=== PATIENT | male | born 1960 | race African-American/Black ===

== ENCOUNTER 2016-08-19 00:13 | Emergency (ER) | payer SELFPAY ==
[~2016-08-19] VITALS: Ht 165.1 cm; Wt 59.0 kg
[2016-08-19] MEDS ORDERED: MULTIVIT INFUSN,ADULT 4,VIT K 10 ML, FOLIC ACID 1 MG, THIAMINE 100 MG in IV NORMAL SALI... IV ONE (01:00)
[2016-08-19] MEDS ORDERED: ONDANSETRON PF 4 MG/2 ML VIAL. IV ONE (01:00)
[2016-08-19 01:08] LABS: BASO % 0 % (0-3); EOS % 2 % (0-3); HEMATOCRIT 36.6 % (39.0-53.0); HEMOGLOBIN 12.3 g/dL (13.0-17.5); LYMPH # 2.2 x10^3/uL (1.0-4.8); LYMPH % 62 % (24-48); MEAN CORPUSCULAR HEMOGLOBIN 32 pg (25-35); MEAN CORPUSCULAR HGB CONC 34 g/dL (31-37); MEAN CORPUSCULAR VOLUME 96 fL (79-100); MONO % 11 % (0-9); NEUT % 24 % (31-73); PLATELET COUNT 162 x10^3/uL (140-400); RED BLOOD COUNT 3.82 x10^6/uL (4.30-5.70); RED CELL DISTRIBUTION WIDTH 14.8 % (11.5-14.5); WHITE BLOOD COUNT 3.6 x10^3/uL (4.0-11.0)
[2016-08-19 01:27] LABS: CALCIUM 8.9 mg/dL (8.5-10.1); CREATININE 0.7 mg/dL (0.7-1.3); GFR 141.7; POTASSIUM 3.7 mmol/L (3.5-5.1)
[2016-08-19 01:31] LABS: ALBUMIN/GLOBULIN RATIO 0.9 (1.0-1.7); TOTAL BILIRUBIN 0.4 mg/dL (0.2-1.0); TOTAL PROTEIN 8.6 g/dL (6.4-8.2)
[2016-08-19 02:45] VITALS: BP 104/67
[2016-08-19] MEDS ORDERED: FAMOTIDINE 20 MG/2 ML VIAL IVP ONE (02:45)
[2016-08-19] MEDS ORDERED: FAMO-63 PO (03:05)
[2016-08-19] MEDS ORDERED: ONDA4TAB7 PO (03:05)
--- NOTE | 2016-08-19 03:05 | PHYS DOC ---
Past Medical History Past Medical History: Bipolar Additional Past Medical Histor: PTSD Past Surgical History: No Surgical History, Other Additional Past Surgical Histo: LT ARM Alcohol Use: Heavy Additional Information: 6 PACK IN THE LAST FEW HOURS Drug Use: None Adult General Chief Complaint Chief Complaint: HEMATEMESIS/VOMITING BLOOD HPI HPI This is a 55-year-old male who presents with multiple episodes of vomiting with some streaks of blood noted as well as well as some mild chest discomfort. Patient states he drank multiple cans of beer today. His fiancee at bedside states he had at least 6 beers prior to arrival. She is speaking in complete sentences and in no acute distress. She is currently alert and oriented and can answer basic questions and is not significantly altered. He denies any recent illnesses. He denies any fever. He does admit to having a fall several days ago does have some mild left-sided pain but denies any other specific complaints. Denies any head trauma with the fall. He denies any loss consciousness. Review of Systems Review of Systems Constitutional: Denies fever or chills [] Eyes: Denies change in visual acuity, redness, or eye pain [] HENT: Denies nasal congestion or sore throat [] Respiratory: Denies cough or shortness of breath [] Cardiovascular: No additional information not addressed in HPI [] GI: Denies abdominal pain, has nausea, has vomiting, denies bloody stools or diarrhea [] : Denies dysuria or hematuria [] Musculoskeletal: Denies back pain or joint pain [] Integument: Denies rash or skin lesions [] Neurologic: Denies headache, focal weakness or sensory changes [] Endocrine: Denies polyuria or polydipsia [] Current Medications Current Medications Current Medications Medications (Trade) Dose Ordered Sig/[facility] Start Time Stop Time Status Last Admin Dose Admin Famotidine (Pepcid) 20 mg 1X ONCE 08/19/16 02:45 08/19/16 02:46 DC 08/19/16 02:54 20 MG Multivitamins/ Folic Acid/ Thiamine HCl/ Sodium Chloride (Infuvite Adult/ Iv Sodium Chloride 0.9% 1000ml Bag) 1,011.2 ml @ 1,000 mls/ hr 1X ONCE 08/19/16 01:00 08/19/16 02:00 DC 08/19/16 01:24 1,000 MLS/HR Ondansetron HCl (Zofran) 4 mg 1X ONCE 08/19/16 01:00 08/19/16 01:01 DC 08/19/16 01:24 4 MG Allergies Allergies Allergies Uncoded Allergies Type Severity Reaction Last Updated Verified OTHER Allergy Intermediate "SOME ALLERGY MEDICINE THAT'S IN A PURPLE BOX" 05/14 Physical Exam Physical Exam Constitutional: Well developed, well nourished, no acute distress, non-toxic appearance. [] HENT: Normocephalic, atraumatic, bilateral external ears normal, oropharynx moist, no oral exudates, nose normal. [] Eyes: PERRLA, EOMI, conjunctiva normal, no discharge. [] Neck: Normal range of motion, no tenderness, supple, no stridor. [] Cardiovascular:Heart rate regular rhythm, no murmur [] Lungs & Thorax: Bilateral breath sounds clear to auscultation [] Abdomen: Bowel sounds normal, soft, no tenderness, no masses, no pulsatile masses. [] Skin: Warm, dry, no erythema, no rash. [] Back: No tenderness, no CVA tenderness. [] Extremities: No tenderness, no cyanosis, no clubbing, ROM intact, no edema. [] Neurologic: Alert and oriented X 3, normal motor function, normal sensory function, no focal deficits noted. [] Psychologic: Affect normal, judgement normal, mood normal. [] Current Patient Data Vital Signs Vital Signs Date Time Temp Pulse Resp B/P Pulse Ox O2 Delivery O2 Flow Rate FiO2 08/19/16 00:30 97.0 75 16 138/96 97 Room Air 97.0 Lab Values Laboratory Tests Test 08/19/16 00:55 White Blood Count 3.6x10^3/uL (4.0-11.0) L Red Blood Count 3.82x10^6/uL (4.30-5.70) L Hemoglobin 12.3g/dL (13.0-17.5) L Hematocrit 36.6% (39.0-53.0) L Mean Corpuscular Volume 96fL (79-100) Mean Corpuscular Hemoglobin 32pg (25-35) Mean Corpuscular Hemoglobin Concent 34g/dL (31-37) Red Cell Distribution Width 14.8% (11.5-14.5) H Platelet Count 162x10^3/uL (140-400) Neutrophils (%) (Auto) 24% (31-73) L Lymphocytes (%) (Auto) 62% (24-48) H Monocytes (%) (Auto) 11% (0-9) H Eosinophils (%) (Auto) 2% (0-3) Basophils (%) (Auto) 0% (0-3) Neutrophils # (Auto) 0.9x10^3uL (1.8-7.7) L Lymphocytes # (Auto) 2.2x10^3/uL (1.0-4.8) Monocytes # (Auto) 0.4x10^3/uL (0.0-1.1) Eosinophils # (Auto) 0.1x10^3/uL (0.0-0.7) Basophils # (Auto) 0.0x10^3/uL (0.0-0.2) Platelet Estimate Pending Sodium Level 141mmol/L (136-145) Potassium Level 3.7mmol/L (3.5-5.1) Chloride Level 100mmol/L (98-107) Carbon Dioxide Level 26mmol/L (21-32) Anion Gap 15 (6-14) H Blood Urea Nitrogen 5mg/dL (8-26) L Creatinine 0.7mg/dL (0.7-1.3) Estimated GFR (Cockcroft-Gault) 141.7 BUN/Creatinine Ratio 7 (6-20) Glucose Level 87mg/dL (70-99) Calcium Level 8.9mg/dL (8.5-10.1) Total Bilirubin 0.4mg/dL (0.2-1.0) Aspartate Amino Transferase (AST) 145U/L (15-37) H Alanine Aminotransferase (ALT) 99U/L (16-63) H Alkaline Phosphatase 132U/L (46-116) H Troponin I Quantitative < 0.017ng/mL (0.000-0.055) Total Protein 8.6g/dL (6.4-8.2) H Albumin 4.0g/dL (3.4-5.0) Albumin/Globulin Ratio 0.9 (1.0-1.7) L Lipase 192U/L (73-393) Ethyl Alcohol Level 387mg/dL (0-10) H Laboratory Tests 08/19/16 00:55 Laboratory Tests 08/19/16 00:55 EKG EKG EKG as interpreted by me shows a sinus rhythm with an approximate rate 76 bpm. There are no obvious ischemic findings. Intervals are normal. EKG does not meet STEMI criteria. Radiology/Procedures Radiology/Procedures One view of the chest as interpreted by me did not reveal an acute cardiopulmonary process. Course & Med Decision Making Course & Med Decision Making Pertinent Labs and Imaging studies reviewed. (See chart for details) This is a 55-year-old male who is acutely intoxicated on alcohol who has a serum ethanol 0.387. Patient was given a banana bag, Zofran, Pepcid and was observed in the department for at least 3 hours and had no incidence. Vital signs were unremarkable. His laboratory workup is consistent with alcohol intoxication with a classically elevated AST and ALTs in the 2-1 ratio. His cardiac enzymes are negative. His EKG did not reveal any obvious ischemic findings. He was given a meal and successfully orally challenged. He did not vomit while in the department. Upon my final reassessment, patient feels much improved and will be safe to be discharged into the care of his fiance with strict instructions to avoid excess alcohol use. I provided him a prescription for Pepcid and Zofran. He'll follow closely with his primary care doctor in the next several days. Romaineon Disclaimer Malcolm Disclaimer This electronic medical record was generated, in whole or in part, using a voice recognition dictation system. Departure Departure Impression: Primary Impression: Alcohol intoxication Additional Impression: Nausea & vomiting Disposition: 01 HOME, SELF-CARE Admitting Physician: Other Condition: STABLE Referrals: UNKNOWN PCP NAME (PCP) Patient Instructions: Alcohol Intoxication, [id number] Additional Instructions: Please take your medications as prescribed and continue to drink plenty of fluids. Avoid drinking excess alcohol. Return to the ER if you develop any worsening of your symptoms. Follow up closely with your primary doctor for your abdominal pain and alcohol use. Scripts Famotidine (Pepcid)20 Mg [id number] Mg PO HS #10 TAB Prov:JAYLON VAUGHN DO 08/19/16 Ondansetron Hcl (Zofran)4 Mg Tablet4 Mg PO BID PRN NAUSEA/VOMITING #10 TAB Prov:JAYLON VAUGHN DO 08/19/16 Problem Qualifiers JAYLON VAUGHN DO Aug 19, 2016 03:05
[2016-08-19 05:32] LABS: % BASOS 2 % (0-3); % EOS 1 % (0-5)
[2016-08-19 05:33] LABS: PLT ESTIMATE ADEQUATE (ADEQUATE); TARGET CELLS FEW
--- NOTE | 2016-08-19 06:41 | EKG ---
[facility] [address] [place] [address] Test Date: 2016-08-19 Test Time: 00:32:23 Pat Name: IGNACIA GAONA Department: Room: Gender: M Reservations Clerk: : 1960 Requested By: JAYLON VAUGHN Order Number: [id number] Reading MD: Beth Bass Measurements Intervals [place] Rate: 76 P: 46 [place]: 194 QRS: 3 QRSD: 100 T: 52 QT: 366 QTc: 416 Interpretive Statements SINUS RHYTHM NORMAL EKG Electronically Signed On 08-21-2016 17:14:45 CDT by Beth Bass
--- NOTE | 2016-08-19 07:30 | RAD ---
Indication chest pain. A single view of the chest was obtained and is compared to an exam 01/24/2014. The heart and pulmonary vessels appear normal. The mediastinum has a normal appearance. The lungs are clear. There is no pleural fluid or pneumothorax. The visualized bony structures appear grossly intact. A significant change compared to the previous exam is not seen. IMPRESSION: No acute or focal process. No significant change
== END 2016-08-19 03:17 | disposition home or self-care (01) ==
LOC: ER 00:13
DX: F10.129 Alcohol abuse with intoxication, unspecified (principal); R11.2 Nausea with vomiting, unspecified; R07.89 Other chest pain; R74.8 Abnormal levels of other serum enzymes; F43.10 Post-traumatic stress disorder, unspecified; F31.9 Bipolar disorder, unspecified
CPT/HCPCS: 36415; 71010; 80053; 80320; 83690; 84484; 85007; 85027; 93005; 96365; 96375; 99285; J2405; J7030; S0028; G0480

== ENCOUNTER 2016-10-16 19:58 | Emergency (ER) | payer SELFPAY ==
[~2016-10-16] VITALS: Ht 162.6 cm; Wt 61.2 kg
[~2016-10-16 19:58] MED LIST: FAMO-63 PO; ONDA4TAB7 PO
[2016-10-16 20:19] VITALS: BP 152/101
[2016-10-16 20:32] LABS: BASO % 1 % (0-3); EOS % 3 % (0-3); HEMOGLOBIN 13.7 g/dL (13.0-17.5); LYMPH # 1.9 x10^3/uL (1.0-4.8); LYMPH % 45 % (24-48); MEAN CORPUSCULAR HEMOGLOBIN 33 pg (25-35); MEAN CORPUSCULAR HGB CONC 34 g/dL (31-37); MEAN CORPUSCULAR VOLUME 96 fL (79-100); MONO % 10 % (0-9); NEUT % 42 % (31-73); PLATELET COUNT 151 x10^3/uL (140-400); RED BLOOD COUNT 4.17 x10^6/uL (4.30-5.70); RED CELL DISTRIBUTION WIDTH 14.6 % (11.5-14.5); WHITE BLOOD COUNT 4.1 x10^3/uL (4.0-11.0)
--- NOTE | 2016-10-16 20:40 | PHYS DOC ---
Past Medical History Past Medical History: Bipolar, Depression, Hypertension Additional Past Medical Histor: PTSD Past Surgical History: No Surgical History, Other Additional Past Surgical Histo: LT ARM Alcohol Use: Heavy Drug Use: None Adult General Chief Complaint Chief Complaint: ABDOMINAL PAIN HPI HPI Patient is a 55 year old male brought to the ED by his with the complaint of left upper quadrant abdominal pain since yesterday. He's had some vomiting for about 3 days, the last time was this morning. He's had some diarrhea off and on. This morning he had complained of left-sided chest pain and "migraine". Patient drinks daily and today he drank 2 "tall" beers. He did vomit after drinking. Last time he was seen for similar problems he was told he had early liver and kidney disease. The patient is full 100% disability through the [employer] for [place]. He also has depression and hypertension. He sees a doctor at [facility]. He does not take his medications regularly. Review of Systems Review of Systems Constitutional: Denies fever or chills [] Eyes: Denies change in visual acuity, redness, or eye pain [] HENT: Denies nasal congestion or sore throat [] Respiratory: Denies cough or shortness of breath [] Cardiovascular: As in history of present illness GI: As in history of present illness : Denies dysuria or hematuria [] Musculoskeletal: Denies back pain or joint pain [] Integument: Denies rash or skin lesions [] Neurologic: Patient complains of a headache that he characterizes as a "migraine " Current Medications Current Medications Current Medications Medications (Trade) Dose Ordered Sig/[place] Start Time Stop Time Status Last Admin Dose Admin Famotidine (Pepcid) 20 mg 1X ONCE 10/16/16 20:45 10/16/16 20:46 DC 10/16/16 21:00 20 MG Fentanyl Citrate (Fentanyl 2ml Vial) 50 mcg 1X ONCE 10/16/16 21:00 10/16/16 21:01 DC 10/16/16 21:00 50 MCG Ketorolac Tromethamine (Toradol) 30 mg 1X ONCE 10/16/16 20:45 10/16/16 20:45 DC Multivitamins 10 ml/Folic Acid 1 mg/Thiamine HCl 100 mg/Dextrose/ Lactated Ringer's 1,011.2 ml @ 1,000 mls/ hr 1X ONCE 10/16/16 21:00 10/16/16 22:00 10/16/16 21:01 1,000 MLS/HR Ondansetron HCl (Zofran) 4 mg 1X ONCE 10/16/16 20:45 10/16/16 20:46 DC 10/16/16 21:00 4 MG Allergies Allergies Allergies Coded Allergies Type Severity Reaction Last Updated Verified Antihistamines - Alkylamine Allergy Intermediate 10/16/16 Yes Antihistamines - Ethanolamine Allergy Intermediate 10/16/16 Yes Antihistamines - Ethylenediamine Allergy Intermediate 10/16/16 Yes Antihistamines - Piperazine Allergy Intermediate 10/16/16 Yes Antihistamines - Piperidine Allergy Intermediate 10/16/16 Yes ibuprofen Allergy Intermediate 10/16/16 Yes Physical Exam Physical Exam Constitutional: Well developed, well nourished, no acute distress, non-toxic appearance. Alert, mentating normally, no acute distress. HENT: Normocephalic, atraumatic, bilateral external ears normal, nose normal. [] Eyes: conjunctiva normal, no discharge. [] Neck: Normal range of motion, no stridor. [] Cardiovascular:Heart rate regular rhythm, no murmur [] Lungs & Thorax: Bilateral breath sounds clear to auscultation [] Abdomen: Bowel sounds normal, no bruit, soft, nondistended, no mass, no pulsatile mass. Mild to moderate tenderness to palpation mostly in the left upper quadrant, no rebound or guarding. Skin: Warm, dry, no erythema, no rash. [] Extremities: No tenderness, no cyanosis, no clubbing, ROM intact, no edema. [] Neurologic: Alert and oriented X 3, normal motor function, normal sensory function, no focal deficits noted. [] Current Patient Data Vital Signs Vital Signs Date Time Temp Pulse Resp B/P (MAP) Pulse Ox O2 Delivery O2 Flow Rate FiO2 10/16/16 21:00 16 10/16/16 20:19 97.6 87 152/101 (118) 100 Room Air 97.6 Lab Values Laboratory Tests Test 10/16/16 20:15 10/16/16 20:53 White Blood Count 4.1 x10^3/uL (4.0-11.0) Red Blood Count 4.17 x10^6/uL (4.30-5.70) L Hemoglobin 13.7 g/dL (13.0-17.5) Hematocrit 40.0 % (39.0-53.0) Mean Corpuscular Volume 96 fL (79-100) Mean Corpuscular Hemoglobin 33 pg (25-35) Mean Corpuscular Hemoglobin Concent 34 g/dL (31-37) Red Cell Distribution Width 14.6 % (11.5-14.5) H Platelet Count 151 x10^3/uL (140-400) Neutrophils (%) (Auto) 42 % (31-73) Lymphocytes (%) (Auto) 45 % (24-48) Monocytes (%) (Auto) 10 % (0-9) H Eosinophils (%) (Auto) 3 % (0-3) Basophils (%) (Auto) 1 % (0-3) Neutrophils # (Auto) 1.7 x10^3uL (1.8-7.7) L Lymphocytes # (Auto) 1.9 x10^3/uL (1.0-4.8) Monocytes # (Auto) 0.4 x10^3/uL (0.0-1.1) Eosinophils # (Auto) 0.1 x10^3/uL (0.0-0.7) Basophils # (Auto) 0.0 x10^3/uL (0.0-0.2) Prothrombin Time 12.3 SEC (11.7-14.0) Prothrombin Time INR 1.0 (0.8-1.1) PTT 26 SEC (24-38) Sodium Level 139 mmol/L (136-145) Potassium Level 4.0 mmol/L (3.5-5.1) Chloride Level 98 mmol/L (98-107) Carbon Dioxide Level 26 mmol/L (21-32) Anion Gap 15 (6-14) H Blood Urea Nitrogen 6 mg/dL (8-26) L Creatinine 0.7 mg/dL (0.7-1.3) Estimated GFR (Cockcroft-Gault) 141.7 BUN/Creatinine Ratio 9 (6-20) Glucose Level 80 mg/dL (70-99) Calcium Level 9.5 mg/dL (8.5-10.1) Total Bilirubin 0.6 mg/dL (0.2-1.0) Aspartate Amino Transferase (AST) 234 U/L (15-37) H Alanine Aminotransferase (ALT) 123 U/L (16-63) H Alkaline Phosphatase 138 U/L (46-116) H Troponin I Quantitative < 0.017 ng/mL (0.000-0.055) Total Protein 8.9 g/dL (6.4-8.2) H Albumin 4.6 g/dL (3.4-5.0) Albumin/Globulin Ratio 1.1 (1.0-1.7) Lipase 352 U/L (73-393) Urine Collection Type Unknown Urine Color Yellow Urine Clarity Clear Urine pH 5.5 Urine Specific [place] <=1.005 Urine Protein Negative mg/dL (NEG-TRACE) Urine Glucose (UA) Negative mg/dL (NEG) Urine Ketones (Stick) Trace mg/dL (NEG) Urine Blood Negative (NEG) Urine Nitrite Negative (NEG) Urine Bilirubin Negative (NEG) Urine Urobilinogen Dipstick 1.0 mg/dL (0.2 mg/dL) Urine Leukocyte Esterase Negative (NEG) Urine RBC Rare /HPF (0-2) Urine WBC Rare /HPF (0-4) Urine Squamous Epithelial Cells Occ /LPF Urine Bacteria 0 /HPF (0-FEW) Laboratory Tests 10/16/16 20:15 Laboratory Tests 10/16/16 20:15 EKG EKG 12-lead EKG read by me. Sinus rhythm. Heart rate 85. There are no acute ST or T wave changes indicative of ischemia or infarction. No STEMI. 2008 [] Radiology/Procedures Radiology/Procedures [] Course & Med Decision Making Course & Med Decision Making Pertinent Labs and Imaging studies reviewed. (See chart for details) 55-year-old man who is a daily drinker presents to the ED with left upper quadrant pain, vomiting, also some pain up into his left chest and a headache. I discussed with the patient and his that we will give him some IV fluids, some IV pain and nausea medicine, check some labs. They're agreeable to that plan. Lipase normal. Transaminases consistent with alcohol abuse. Other labs unremarkable. I believe the patient likely has alcoholic gastritis. I'm not finding any other concern for other serious medical causes of his condition. Discussed with the patient and his . See instructions for plan. [] Dragon Disclaimer Dragon Disclaimer This electronic medical record was generated, in whole or in part, using a voice recognition dictation system. Departure Departure Impression: Primary Impression: Left upper quadrant abdominal pain of unknown etiology Additional Impressions: Alcoholic gastritis Alcohol abuse Disposition: 01 HOME, SELF-CARE Condition: STABLE Referrals: UNKNOWN PCP NAME (PCP) Patient Instructions: Alcohol Problems, Gastritis, Adult, [id number] Additional Instructions: As we discussed, labs today did not show a serious cause of your pain. I think it might be an inflamed stomach from drinking alcohol. If possible, avoid drinking alcohol for the next several days. Drink liquids and stick with bland foods in small amounts. Purchase [id number] Zantac, ranitidine, and take as directed. This medicine decreases your stomach acid. Problem Qualifiers SARAH DENG MD Oct 16, 2016 20:40
[2016-10-16 20:41] LABS: PROTHROMBIN TIME PATIENT 12.3 SEC (11.7-14.0)
[2016-10-16] MEDS ORDERED: ONDANSETRON PF 4 MG/2 ML VIAL. IV ONE (20:45)
[2016-10-16] MEDS ORDERED: FAMOTIDINE 20 MG/2 ML VIAL IVP ONE (20:45)
[2016-10-16] MEDS ORDERED: KETOROLAC TROMETHAMINE 30 MG/ML INJ. IV ONE (20:45)
[2016-10-16 20:48] LABS: CALCIUM 9.5 mg/dL (8.5-10.1); CREATININE 0.7 mg/dL (0.7-1.3); GFR 141.7
[2016-10-16 20:55] LABS: ALBUMIN 4.6 g/dL (3.4-5.0); ALBUMIN/GLOBULIN RATIO 1.1 (1.0-1.7); TOTAL BILIRUBIN 0.6 mg/dL (0.2-1.0); TOTAL PROTEIN 8.9 g/dL (6.4-8.2)
[2016-10-16] MEDS ORDERED: fentaNYL PF VIAL 100 MCG/2 ML VIAL IV ONE (21:00)
[2016-10-16] MEDS ORDERED: MULTIVIT INFUSN,ADULT 4,VIT K 10 ML, FOLIC ACID 1 MG, THIAMINE 100 MG in IV DEXTROSE 5%... IV ONE (21:00)
[2016-10-16 21:01] LABS: BILIRUBIN,URINE NEGATIVE (NEG); GLUCOSE,URINE NEGATIVE (NEG); NITRITE,URINE NEGATIVE (NEG); PH,URINE 5.5; PROTEIN,URINE NEGATIVE (NEG-TRACE)
[2016-10-16 21:06] LABS: BACTERIA,URINE 0 /HPF (0-FEW); RBC,URINE RARE /HPF (0-2); SQUAMOUS EPITHELIAL CELL,UR OCC /LPF; WBC,URINE RARE /HPF (0-4)
--- NOTE | 2016-10-17 06:10 | EKG ---
[facility] [address] [place] [address] Test Date: 2016-10-16 Test Time: 20:08:19 Pat Name: IGNACIA GAONA Department: Room: Gender: M Police Records Clerk: : 1960 Requested By: SARAH DENG Order Number: [id number] Reading MD: Denton Rosa Measurements Intervals [place] Rate: 85 P: 26 [place]: 178 QRS: -7 QRSD: 92 T: 23 QT: 360 QTc: 429 Interpretive Statements SINUS RHYTHM LEFTWARD AXIS QRS(T) CONTOUR ABNORMALITY CONSISTENT WITH ANTEROSEPTAL INFARCT AGE UNDETERMINED RI6.01 Unconfirmed report Compared to ECG 08/19/2016 00:32:23 Left-axis deviation now present Myocardial infarct finding now present Electronically Signed On 10-17-2016 11:07:45 CDT by Denton Rosa
== END 2016-10-16 22:05 | disposition home or self-care (01) ==
LOC: ER 19:58
DX: R10.12 Left upper quadrant pain (principal); K29.20 Alcoholic gastritis without bleeding; F10.10 Alcohol abuse, uncomplicated; G43.909 Migraine, unspecified, not intractable, without status migrainosus; I10 Essential (primary) hypertension; F43.10 Post-traumatic stress disorder, unspecified; F31.9 Bipolar disorder, unspecified; Z88.8 Allergy status to other drugs, medicaments and biological substances; Z88.6 Allergy status to analgesic agent
CPT/HCPCS: 36415; 80053; 81001; 83690; 84484; 85027; 85610; 85730; 93005; 96365; 96375; 99285; J2405; J3010; S0028

== ENCOUNTER 2017-05-31 12:17 | Inpatient (IN) | payer OTHER ==
[2017-05-31 12:29] LABS: POC GLUCOSE 99 mg/dL (70-99)
[2017-05-31] MEDS: IV NORMAL SALINE 1000ML BAG 1,000 ML IV ×3 (12:30→21:11)
[2017-05-31 12:31] LABS: ADD MAN DIFF? NO
[2017-05-31 12:43] LABS: BILIRUBIN,URINE NEGATIVE (NEG); CLARITY,URINE CLEAR; COLOR,URINE YELLOW; GLUCOSE,URINE NEGATIVE (NEG); NITRITE,URINE NEGATIVE (NEG); PH,URINE 5.5; PROTEIN,URINE NEGATIVE (NEG-TRACE)
[2017-05-31 12:46] LABS: BASO # 0.1 x10^3/uL (0.0-0.2); BASO % 1 % (0-3); EOS # 0.3 x10^3/uL (0.0-0.7); EOS % 3 % (0-3); HEMATOCRIT 37.6 % (39.0-53.0); HEMOGLOBIN 12.7 g/dL (13.0-17.5); LYMPH # 3.1 x10^3/uL (1.0-4.8); LYMPH % 32 % (24-48); MEAN CORPUSCULAR HEMOGLOBIN 31 pg (25-35); MEAN CORPUSCULAR HGB CONC 34 g/dL (31-37); MEAN CORPUSCULAR VOLUME 92 fL (79-100); MONO # 0.6 x10^3/uL (0.0-1.1); MONO % 7 % (0-9); NEUT # 5.7 x10^3uL (1.8-7.7); NEUT % 58 % (31-73); PLATELET COUNT 197 x10^3/uL (140-400); RED BLOOD COUNT 4.07 x10^6/uL (4.30-5.70); RED CELL DISTRIBUTION WIDTH 16.3 % (11.5-14.5); WHITE BLOOD COUNT 9.7 x10^3/uL (4.0-11.0)
[2017-05-31 12:47] LABS: BARBITURATES NEG (NEG); BENZODIAZEPINES POS (NEG); CANNABINOIDS NEG (NEG); COCAINE NEG (NEG); METHADONE NEG (NEG); OPIATES NEG (NEG); PHENCYCLIDINE NEG (NEG)
[2017-05-31 12:48] LABS: AMPHETAMINE/METHAMPHETAMINE NEG (NEG); ETHANOL, URINE POS (NEG)
[2017-05-31 12:54] LABS: ANION GAP 16 (6-14); BLOOD UREA NITROGEN 11 mg/dL (8-26); BUN/CREATININE RATIO 14 (6-20); CARBON DIOXIDE 25 mmol/L (21-32); CHLORIDE 100 mmol/L (98-107); CREATININE 0.8 mg/dL (0.7-1.3); GLUCOSE 97 mg/dL (70-99); POTASSIUM 3.7 mmol/L (3.5-5.1); SODIUM 141 mmol/L (136-145)
[2017-05-31 12:55] LABS: ETHANOL 181 mg/dL (0-10)
[2017-05-31 12:58] LABS: AMORPHOUS SEDIMENT,UR PRESENT /HPF; BACTERIA,URINE 0 /HPF (0-FEW); HYALINE CASTS, URINE MODERATE /HPF; RBC,URINE 0 /HPF (0-2); WBC,URINE 0 /HPF (0-4)
[2017-05-31 13:01] LABS: ALBUMIN/GLOBULIN RATIO 0.9 (1.0-1.7); ALK PHOS 155 U/L (46-116); ALT (SGPT) 17 U/L (16-63); AST (SGOT) 18 U/L (15-37); LIPASE 66 U/L (73-393); TOTAL BILIRUBIN 0.5 mg/dL (0.2-1.0); TOTAL PROTEIN 8.7 g/dL (6.4-8.2)
[2017-05-31 13:03] LABS: TROPONINI < 0.017 ng/mL (0.000-0.055)
[2017-05-31 13:05] LABS: LACTIC ACID 3.2 mmol/L (0.4-2.0)
[2017-05-31] MEDS: IOHEXOL 300 MG/ML 100ML VIAL. IV (13:16)
[2017-05-31] MEDS: ROCURONIUM 50 MG/5 ML VIAL. IV (13:52)
[2017-05-31] MEDS: ETOMIDATE 20 MG/10 ML VIAL. IV (13:52)
[2017-05-31] MEDS ORDERED: ONDANSETRON PF 4 MG/2 ML VIAL. IV ×2 (14:00→14:45)
[2017-05-31] MEDS: PROPOFOL 10 MG/ML (20ML) VIAL. IV (14:15)
[2017-05-31] MEDS ORDERED: PROPOFOL 50 ML IV (14:15)
[2017-05-31] MEDS: levETIRAcetam 1,000 MG in IV DEXTROSE 5% 100 ML IV ×2 (14:31→21:11)
[2017-05-31] MEDS: PROPOFOL 50 ML IV (14:33)
[2017-05-31 14:57] LABS: BASE EXCESS ABG -1 mmol/L (-3-3); HCO3 ABG 20 mmol/L (21-28); PCO2 ABG 23 mmHg (35-46); PO2 ABG 126 mmHg (75-108); SAT O2 ABG 98 % (92-99)
[2017-05-31 15:32] LABS: PH ABG 7.56 (7.35-7.45)
[2017-05-31] MEDS: fentaNYL PF VIAL 100 MCG/2 ML VIAL IV (16:25)
[2017-05-31 16:34] LABS: LACTIC ACID 3.3 mmol/L (0.4-2.0)
[2017-05-31] MEDS ORDERED: PROPOFOL 0 ML IV (17:50)
[2017-05-31] MEDS: THIAMINE 100 MG in IV DEXTROSE 5% 50 ML IV (19:38)
[2017-05-31] MEDS ORDERED: PROPOFOL 100 ML IV ×2 (22:23→22:43)
[2017-06-01] MEDS: PROPOFOL 100 ML IV ×2 (01:59→06:12)
[2017-06-01] MEDS: FAMOTIDINE 20 MG/2 ML VIAL IVP ×2 (04:59→21:10)
[2017-06-01] MEDS: levETIRAcetam 1,000 MG in IV DEXTROSE 5% 100 ML IV ×3 (05:00→21:09)
[2017-06-01] MEDS: IV NORMAL SALINE 1000ML BAG 1,000 ML IV ×2 (05:02→09:59)
[2017-06-01 05:10] LABS: ADD MAN DIFF? NO
[2017-06-01 05:17] LABS: BASO % 1 % (0-3); EOS # 0.4 x10^3/uL (0.0-0.7); EOS % 4 % (0-3); HEMATOCRIT 33.2 % (39.0-53.0); HEMOGLOBIN 11.3 g/dL (13.0-17.5); LYMPH # 1.6 x10^3/uL (1.0-4.8); LYMPH % 18 % (24-48); MEAN CORPUSCULAR HEMOGLOBIN 32 pg (25-35); MEAN CORPUSCULAR HGB CONC 34 g/dL (31-37); MEAN CORPUSCULAR VOLUME 92 fL (79-100); MONO # 0.7 x10^3/uL (0.0-1.1); MONO % 8 % (0-9); NEUT # 5.9 x10^3uL (1.8-7.7); NEUT % 69 % (31-73); PLATELET COUNT 170 x10^3/uL (140-400); RED BLOOD COUNT 3.59 x10^6/uL (4.30-5.70); RED CELL DISTRIBUTION WIDTH 16.5 % (11.5-14.5); WHITE BLOOD COUNT 8.6 x10^3/uL (4.0-11.0)
[2017-06-01 05:28] LABS: ANION GAP 12 (6-14); BLOOD UREA NITROGEN 9 mg/dL (8-26); CALCIUM 7.9 mg/dL (8.5-10.1); CARBON DIOXIDE 24 mmol/L (21-32); CHLORIDE 106 mmol/L (98-107); CREATININE 0.7 mg/dL (0.7-1.3); GFR 141.2; GLUCOSE 73 mg/dL (70-99); POTASSIUM 3.3 mmol/L (3.5-5.1); SODIUM 142 mmol/L (136-145)
[2017-06-01 07:45] LABS: BASE EXCESS ABG 0 mmol/L (-3-3); HCO3 ABG 24 mmol/L (21-28); PCO2 ABG 39 mmHg (35-46); PH ABG 7.41 (7.35-7.45); PO2 ABG 126 mmHg (75-108); SAT O2 ABG 98 % (92-99)
[2017-06-01 07:50] LABS: FIO2 ABG 35
[2017-06-01] MEDS ORDERED: HALOPERIDOL LACTATE 5 MG/ML VIAL. IVP (08:30)
[2017-06-01 08:41] LABS: PHOSPHORUS 2.4 mg/dL (2.6-4.7)
[2017-06-01 08:41] LABS: MAGNESIUM 1.6 mg/dL (1.8-2.4)
[2017-06-01] MEDS: MULTIVIT INFUSN,ADULT 4,VIT K 10 ML, THIAMINE 100 MG, FOLIC ACID 1 MG in IV NORMAL SALI... IV (10:55)
[2017-06-01] MEDS: ENOXAPARIN 40 MG/0.4 ML SYRINGE. SQ (11:36)
[2017-06-01 12:22] LABS: MRSA BY PCR Negative (Negative)
[2017-06-01] MEDS: POTASSIUM PHOSPHATE DIBASIC 10 MMOL in IV DEXTROSE 5% 100 ML IV ×2 (17:47→18:00)
[2017-06-01] MEDS: MAGNESIUM SULFATE 4GM 100 ML IV (17:47)
[2017-06-01] MEDS: ACETAMINOPHEN 650 MG/20.3 ML SOLUTION. PEG (18:09)
[2017-06-01] MEDS: POTASSIUM CL 20MEQ D5-0.9%NACL 1,000 ML IV (18:14)
[2017-06-02] MEDS: MONTELUKAST SODIUM 10 MG TABLET. PO (02:44)
[2017-06-02 04:25] LABS: ADD MAN DIFF? NO
[2017-06-02 04:32] LABS: BASO # 0.1 x10^3/uL (0.0-0.2); BASO % 1 % (0-3); EOS # 0.4 x10^3/uL (0.0-0.7); EOS % 6 % (0-3); HEMATOCRIT 31.3 % (39.0-53.0); HEMOGLOBIN 10.7 g/dL (13.0-17.5); LYMPH # 1.5 x10^3/uL (1.0-4.8); LYMPH % 22 % (24-48); MEAN CORPUSCULAR HEMOGLOBIN 32 pg (25-35); MEAN CORPUSCULAR HGB CONC 34 g/dL (31-37); MEAN CORPUSCULAR VOLUME 93 fL (79-100); MONO # 0.7 x10^3/uL (0.0-1.1); MONO % 10 % (0-9); NEUT # 4.2 x10^3uL (1.8-7.7); NEUT % 61 % (31-73); PLATELET COUNT 182 x10^3/uL (140-400); RED BLOOD COUNT 3.37 x10^6/uL (4.30-5.70); RED CELL DISTRIBUTION WIDTH 15.8 % (11.5-14.5); WHITE BLOOD COUNT 6.8 x10^3/uL (4.0-11.0)
[2017-06-02 04:53] LABS: ANION GAP 8 (6-14); BLOOD UREA NITROGEN 8 mg/dL (8-26); CALCIUM 8.1 mg/dL (8.5-10.1); CARBON DIOXIDE 25 mmol/L (21-32); CHLORIDE 107 mmol/L (98-107); CREATININE 0.8 mg/dL (0.7-1.3); GLUCOSE 112 mg/dL (70-99); MAGNESIUM 2.3 mg/dL (1.8-2.4); POTASSIUM 3.7 mmol/L (3.5-5.1); SODIUM 140 mmol/L (136-145)
[2017-06-02] MEDS: POTASSIUM CL 20MEQ D5-0.9%NACL 1,000 ML IV (05:50)
[2017-06-02] MEDS: MULTIVIT INFUSN,ADULT 4,VIT K 10 ML, THIAMINE 100 MG, FOLIC ACID 1 MG in IV NORMAL SALI... IV (08:42)
[2017-06-02] MEDS: levETIRAcetam 1,000 MG in IV DEXTROSE 5% 100 ML IV (09:00)
[2017-06-02] MEDS: ENOXAPARIN 40 MG/0.4 ML SYRINGE. SQ (12:36)
[2017-06-02] MEDS: FLUTICASONE 50MCG/NASAL SPRAY 16GM BOTTLE. NS (12:36)
[2017-06-02] MEDS ORDERED: MONTELUKAST SODIUM 10 MG TABLET. PO (21:00)
== END 2017-06-02 15:10 | disposition home or self-care (01) | DRG 208 ==
LOC: ER 12:17 → 1 WEST ICU 13:58 → 6 SOUTH 06-01 19:49
PROC: 0BH17EZ Insertion of Endotracheal Airway into Trachea, Via Natural or Artificial Opening (ICD-10-PCS; principal; 2017-05-31)
PROC: 5A1935Z Respiratory Ventilation, Less than 24 Consecutive Hours (ICD-10-PCS; 2017-05-31)
DX: J96.00 Acute respiratory failure, unspecified whether with hypoxia or hypercapnia (principal); G92 Toxic encephalopathy; R56.9 Unspecified convulsions; E87.2 Acidosis; G31.2 Degeneration of nervous system due to alcohol; F10.229 Alcohol dependence with intoxication, unspecified; K21.9 Gastro-esophageal reflux disease without esophagitis; F19.90 Other psychoactive substance use, unspecified, uncomplicated; E87.6 Hypokalemia; E83.42 Hypomagnesemia; E83.39 Other disorders of phosphorus metabolism; R40.2430 Glasgow coma scale score 3-8, unspecified time; I10 Essential (primary) hypertension; F31.9 Bipolar disorder, unspecified; F43.10 Post-traumatic stress disorder, unspecified; Y90.6 Blood alcohol level of 120-199 mg/100 ml; Z88.6 Allergy status to analgesic agent; Z88.8 Allergy status to other drugs, medicaments and biological substances
CPT/HCPCS: 36415; 36600; 51702; 70450; 70496; 70498; 71045; 72125; 80048; 80053; 80307; 81001; 82805; 82962; 83605; 83690; 83735; 84100; 84484; 85025; 87040; 87641; 93005; 94002; 94003; 95816; 96360; 99285-25; 99406; G0480; J1650; J1953; J2060; J2704; J3010; J3475; J7030; Q9967; S0028

== ENCOUNTER 2018-10-06 17:38 | Inpatient (IN) | payer SELFPAY ==
[~2018-10-06] VITALS: Ht 165.1 cm; Wt 65.8 kg
[~2018-10-06 17:38] MED LIST changes: +BACL10TA PO; +DOCU-109 PO; +GABA-585 PO; +HYDR-2761 PO; +HYDR410O TP; +LEVE500T56 PO; +MIRT15TA3 PO; +MULT1TAB52 PO; +OMEG1CAP6 PO; +THIA100T8 PO; +TRAZ150T49 PO; +TRIA15CR2 TP; +[UNRECOGNIZED DRUG - CODE] PO; +[UNRECOGNIZED DRUG - CODE] TP
--- NOTE | 2018-10-06 17:58 | PHYS DOC ---
Past Medical History Past Medical History: Alcoholism, Bipolar, Depression, Hypertension Additional Past Medical Histor: PTSD Past Surgical History: No Surgical History, Other Additional Past Surgical Histo: LT ARM, RIGHT EAR HEARING? Alcohol Use: None Drug Use: Benzodiazepine, Cocaine Adult General Chief Complaint Chief Complaint: NEURO SYMPTOMS/DEFICITS [facility] HPI Patient is a 57 year old female with history of hypertension, bipolar, alcoholism, depression, who presents to the ED today with right sided weakness, symptoms began on around 6 PM. Patient is in the ED with the martha who is doing most of the speaking, she states EMS they called EMS to their house on due to the right sided weakness, she states patient was informed he could have a stroke and requested to be brought to the Ed by EMS, he refused to be brought to the Ed. Patient presents today because her daughter requested patient to come to the ED to be seen. Patient appears intoxicated, he is very verbally and physically aggressive. We tried doing the stroke scale, he was uncooperative at times giving us mixed signals on his symptoms. Fichemo states patient has-been drinking today. Review of Systems Review of Systems Constitutional: Denies fever or chills [] Eyes: Denies change in visual acuity, redness, or eye pain [] HENT: Denies nasal congestion or sore throat [] Respiratory: Denies cough or shortness of breath [] Cardiovascular: No additional information not addressed in HPI [] GI: Denies abdominal pain, nausea, vomiting, bloody stools or diarrhea [] : Denies dysuria or hematuria [] Musculoskeletal: Denies back pain or joint pain [] Integument: Denies rash or skin lesions [] Neurologic: Reports right-sided weakness. Denies headache, focal weakness or sensory changes [] psych:appears intoxicated All other systems were reviewed and found to be within normal limits, except as documented in this note. Current Medications Current Medications Current Medications Medications (Trade) Dose Ordered Sig/Alberto Start Time Stop Time Status Last Admin Dose Admin Lorazepam (Ativan Inj) 2 mg 1X ONCE 10/06/18 19:00 10/06/18 19:01 DC 10/06/18 19:01 2 MG Sodium Chloride 1,000 ml @ 1,000 mls/hr 1X ONCE 10/06/18 19:15 10/06/18 20:14 DC 10/06/18 19:19 1,000 MLS/HR Allergies Allergies Allergies Coded Allergies Type Severity Reaction Last Updated Verified Antihistamines - Alkylamine Allergy Intermediate 10/16/16 Yes Antihistamines - Ethanolamine Allergy Intermediate 10/16/16 Yes Antihistamines - Ethylenediamine Allergy Intermediate 10/16/16 Yes Antihistamines - Piperazine Allergy Intermediate 10/16/16 Yes Antihistamines - Piperidine Allergy Intermediate 10/16/16 Yes ibuprofen Allergy Intermediate 10/16/16 Yes Physical Exam Physical Exam Constitutional: Well developed, well nourished, no acute distress, non-toxic appearance. [] HENT: Normocephalic, atraumatic, bilateral external ears normal, oropharynx moist, no oral exudates, nose normal. [] Eyes: PERRLA, EOMI, conjunctiva normal, no discharge. [] Neck: Normal range of motion, no tenderness, supple, no stridor. [] Cardiovascular:Heart rate regular rhythm, no murmur [] Lungs & Thorax: Bilateral breath sounds clear to auscultation [] Abdomen: Bowel sounds normal, soft, no tenderness, no masses, no pulsatile masses. [] Skin: Warm, dry, no erythema, no rash. [] Back: No tenderness, no CVA tenderness. [] Extremities: No tenderness, no cyanosis, no clubbing, ROM intact, limited range of motion to the right lower extremity and slightly Limited range of motion to the right upper extremity. Neurologic: Alert and oriented X 3, normal motor function, normal sensory function, no focal deficits noted. Cranial nerves II through XII intact, slight difficulty gripping on the right upper extremity, limited strength on the right lower extremity. Psychologic: Intoxicated, physical and verbally aggressive. Current Patient Data Vital Signs Vital Signs Date Time Temp Pulse Resp B/P (MAP) Pulse Ox O2 Delivery O2 Flow Rate FiO2 10/06/18 19:00 92 24 98 10/06/18 17:40 97.9 140/86 (104) Room Air 97.9 Lab Values Laboratory Tests Test 10/06/18 17:48 10/06/18 18:00 10/06/18 18:21 10/06/18 18:57 Glucose (Fingerstick) 86 mg/dL (70-99) White Blood Count 5.4 x10^3/uL (4.0-11.0) Red Blood Count 3.90 x10^6/uL (4.30-5.70) L Hemoglobin 12.8 g/dL (13.0-17.5) L Hematocrit 36.8 % (39.0-53.0) L Mean Corpuscular Volume 94 fL (79-100) Mean Corpuscular Hemoglobin 33 pg (25-35) Mean Corpuscular Hemoglobin Concent 35 g/dL (31-37) Red Cell Distribution Width 17.0 % (11.5-14.5) H Platelet Count 278 x10^3/uL (140-400) Neutrophils (%) (Auto) 40 % (31-73) Lymphocytes (%) (Auto) 50 % (24-48) H Monocytes (%) (Auto) 6 % (0-9) Eosinophils (%) (Auto) 3 % (0-3) Basophils (%) (Auto) 1 % (0-3) Neutrophils # (Auto) 2.2 x10^3uL (1.8-7.7) Lymphocytes # (Auto) 2.7 x10^3/uL (1.0-4.8) Monocytes # (Auto) 0.3 x10^3/uL (0.0-1.1) Eosinophils # (Auto) 0.2 x10^3/uL (0.0-0.7) Basophils # (Auto) 0.0 x10^3/uL (0.0-0.2) Prothrombin Time 12.4 SEC (11.7-14.0) Prothrombin Time INR 1.0 (0.8-1.1) PTT 30 SEC (24-38) Sodium Level 142 mmol/L (136-145) Potassium Level 3.9 mmol/L (3.5-5.1) Chloride Level 100 mmol/L (98-107) Carbon Dioxide Level 22 mmol/L (21-32) Anion Gap 20 (6-14) H Blood Urea Nitrogen 9 mg/dL (8-26) Creatinine 0.9 mg/dL (0.7-1.3) Estimated GFR (Cockcroft-Gault) 105.2 BUN/Creatinine Ratio 10 (6-20) Glucose Level 76 mg/dL (70-99) Calcium Level 8.9 mg/dL (8.5-10.1) Magnesium Level 2.0 mg/dL (1.8-2.4) Total Bilirubin 0.3 mg/dL (0.2-1.0) Aspartate Amino Transferase (AST) 39 U/L (15-37) H Alanine Aminotransferase (ALT) 32 U/L (16-63) Alkaline Phosphatase 129 U/L (46-116) H Creatine Kinase 72 U/L (39-308) Creatine Kinase MB (Mass) < 0.5 ng/mL (0.0-3.6) Creatine Kinase MB Relative Index % (0-4) Troponin I Quantitative < 0.017 ng/mL (0.000-0.055) YI-Zci-B-Type Natriuretic Peptide 15 pg/mL (0-124) Total Protein 7.8 g/dL (6.4-8.2) Albumin 4.3 g/dL (3.4-5.0) Albumin/Globulin Ratio 1.2 (1.0-1.7) Thyroid Stimulating Hormone (TSH) 0.229 uIU/mL (0.358-3.74) L Ethyl Alcohol Level 427 mg/dL (0-10) *H Lactic Acid Level 2.9 mmol/L (0.4-2.0) H Ammonia 19 mcmol/L (11-34) Urine Opiates Screen Neg (NEG) Urine Methadone Screen Neg (NEG) Urine Barbiturates Neg (NEG) Urine Phencyclidine Screen Neg (NEG) Urine Amphetamine/Methamphetamine Neg (NEG) Urine Benzodiazepines Screen Neg (NEG) Urine Cocaine Screen Neg (NEG) Urine Cannabinoids Screen Neg (NEG) Urine Ethyl Alcohol Pos (NEG) Laboratory Tests 10/06/18 18:00 Laboratory Tests 10/06/18 18:00 EKG EKG [] Radiology/Procedures Radiology/Procedures []PROCEDURE: PORTABLE CHEST 1V AP chest x-ray HISTORY: Stroke symptoms. COMPARISON: Chest x-ray September 05, 2017. FINDINGS: Heart size is normal. Mediastinal silhouette is normal. No pneumothorax, pulmonary opacities or pleural effusions. The bones are unremarkable. IMPRESSION: No acute process. Electronically signed by: Jakub Melara MD (10/06/2018 8:47 PM) [facility] DICTATED and SIGNED BY: JAKUB MELARA MD DATE: 10/06/182046 PROCEDURE: CT CODE STROKE HEAD WO CT scan of the head without contrast 10/06/2018 Clinical History: Stroke symptoms. Code stroke. Technique: Unenhanced, contiguous, 5 mm axial sections were obtained through the head. One or more of the following individualized dose reduction techniques were utilized for this study: 1. Automated exposure control. 2. Adjustment of the mA and/or kV according to patient size. 3. Use of iterative reconstruction technique. Findings: Comparison study is dated 09/05/2017 There is generalized parenchymal atrophy. Areas of decreased attenuation are seen within the periventricular and subcortical white matter of both cerebral hemispheres consistent with areas of small vessel ischemic disease. No acute parenchymal abnormality is seen. No extra-axial fluid collection is noted. No skull fracture is seen. Impression: No acute intracranial abnormality is seen. This result was called to the emergency department at 1758 hours. Electronically signed by: Jaime Thompson MD (10/06/2018 6:01 PM) [facility] DICTATED and SIGNED BY: JAIME THOMPSON MD DATE: 10/06/18 180 Course & Med Decision Making Course & Med Decision Making Pertinent Labs and Imaging studies reviewed. (See chart for details) This is a 57-year-old male patient presenting to the ED with right-sided weakness that began yesterday. Patient arrives in the ED verbally and physically aggressive. He appears intoxicated. The right side appears weaker than the left. Stroke scale was very high as high as 14 on arrival then then we realized this patient is able to perform some of the questions on the stroke scale but he chooses not to do them and and at time does them whenever he wants. Stroke scale has been hard to do considering his behavior. He was also intoxicated and physically and verbally aggressive . CT of the head is negative for any acute findings. CBC with no acute findings, CMP no acute findings, lactic 2.9, patient does not appear septic. There is question whether he had a seizure, he has history of seizures from alcohol use, alcohol level 427. Patient continued to be verbally and physically aggressive, he was demanding to leave the Ed. We asked him to get up and walk out he was unable to get out of the bed, he seem to drug his right leg more than the left. We had to give him Ativan and sedate him for a while because he could not stop his aggressiveness. I spoke with Dr. Quezada who requested we order MRI of the brain tomorrow morning Spoke with Dr. Fagan who accepted patient for admission Malcolm Disclaimer Malcolm Disclaimer This electronic medical record was generated, in whole or in part, using a voice recognition dictation system. Departure Departure Impression: Primary Impression: Alcohol intoxication Additional Impressions: Elevated lactic acid level Right sided weakness Disposition: ADMITTED INPATIENT Condition: STABLE Referrals: UNKNOWN PCP NAME (PCP) NIHSS Stroke Scale NIH Stroke Scale: NIH Stroke Scale Response (Comments) Value Level of Consciousness: 0 Alert/Responsive 0 LOC Questions: 1 Answers one correctly (Patient is intoxicated and agressive) 1 LOC Commands: 1 Performs one task 1 Best Gaze: 0 Normal 0 Visual: 0 No visual loss 0 Facial Palsy: 0 Normal, symmetrical 0 Motor - Left Arm 2 Some effort 2 Motor - Right Arm 2 Some effort 2 Motor - Left Leg 2 Some effort 2 Motor: Right Leg 3 Limb falls 3 Limb Ataxia: 2 Two limbs 2 Sensory: 1 Mid to moderate loss 1 Best Language: 0 Normal 0 Dysathria: 0 Normal 0 Extinction and Inattention: 0 Normal 0 Total 14 Problem Qualifiers Primary Impression: Alcohol intoxication Complication of substance-induced condition: with delirium Qualified Codes: F10.921 - Alcohol use, unspecified with intoxication delirium JASMINE WHITMAN APRN Oct 06, 2018 17:58
--- NOTE | 2018-10-06 18:05 | RAD ---
CT scan of the head without contrast 10/06/2018 Clinical History: Stroke symptoms. Code stroke. Technique: Unenhanced, contiguous, 5 mm axial sections were obtained through the head. One or more of the following individualized dose reduction techniques were utilized for this study: 1. Automated exposure control. 2. Adjustment of the mA and/or kV according to patient size. 3. Use of iterative reconstruction technique. Findings: Comparison study is dated 09/05/2017 There is generalized parenchymal atrophy. Areas of decreased attenuation are seen within the periventricular and subcortical white matter of both cerebral hemispheres consistent with areas of small vessel ischemic disease. No acute parenchymal abnormality is seen. No extra-axial fluid collection is noted. No skull fracture is seen. Impression: No acute intracranial abnormality is seen. This result was called to the emergency department at 1758 hours. Electronically signed by: Jaime Thompson MD (10/06/2018 6:01 PM) [facility]
[2018-10-06 18:10] LABS: BASO % 1 % (0-3); EOS # 0.2 x10^3/uL (0.0-0.7); EOS % 3 % (0-3); HEMATOCRIT 36.8 % (39.0-53.0); HEMOGLOBIN 12.8 g/dL (13.0-17.5); LYMPH # 2.7 x10^3/uL (1.0-4.8); LYMPH % 50 % (24-48); MEAN CORPUSCULAR HEMOGLOBIN 33 pg (25-35); MEAN CORPUSCULAR HGB CONC 35 g/dL (31-37); MEAN CORPUSCULAR VOLUME 94 fL (79-100); MONO # 0.3 x10^3/uL (0.0-1.1); MONO % 6 % (0-9); NEUT # 2.2 x10^3uL (1.8-7.7); NEUT % 40 % (31-73); PLATELET COUNT 278 x10^3/uL (140-400); WHITE BLOOD COUNT 5.4 x10^3/uL (4.0-11.0)
[2018-10-06 18:20] LABS: PROTHROMBIN TIME PATIENT 12.4 SEC (11.7-14.0)
[2018-10-06 18:28] LABS: CALCIUM 8.9 mg/dL (8.5-10.1); CREATININE 0.9 mg/dL (0.7-1.3); GFR 105.2; POTASSIUM 3.9 mmol/L (3.5-5.1)
[2018-10-06 18:35] LABS: ALBUMIN 4.3 g/dL (3.4-5.0); ALBUMIN/GLOBULIN RATIO 1.2 (1.0-1.7); TOTAL BILIRUBIN 0.3 mg/dL (0.2-1.0); TOTAL PROTEIN 7.8 g/dL (6.4-8.2)
[2018-10-06 18:45] LABS: CREATINE KINASE 72 U/L (39-308)
[2018-10-06 19:13] LABS: BARBITURATES NEG (NEG); BENZODIAZEPINES NEG (NEG); CANNABINOIDS NEG (NEG); COCAINE NEG (NEG); METHADONE NEG (NEG); OPIATES NEG (NEG); PHENCYCLIDINE NEG (NEG)
[2018-10-06 19:15] LABS: AMPHETAMINE/METHAMPHETAMINE NEG (NEG)
[2018-10-06] MEDS ORDERED: IV NORMAL SALINE 1000ML BAG 1,000 ML IV ONE ×2 (19:15→19:30)
[2018-10-06] MEDS ORDERED: MULTIVIT INFUSN,ADULT 4,VIT K 10 ML, THIAMINE INJ 100 MG, FOLIC ACID INJ 1 MG in IV NOR... IV ONE (19:30)
[2018-10-06] MEDS ORDERED: ONDANSETRON PF 4 MG/2 ML VIAL. IV PRN ×2 (19:30→20:15)
[2018-10-06] MEDS ORDERED: ACETAMINOPHEN 500 MG TABLET PO PRN (20:15)
[2018-10-06] MEDS ORDERED: NICOTINE 21MG PATCH. TD PRN (20:15)
[2018-10-06] MEDS ORDERED: HYDROcodone/APAP 5/325MG 1 TAB TABLET PO PRN (20:15)
[2018-10-06] MEDS ORDERED: MENTHOL TP PRN (20:15)
[2018-10-06] MEDS ORDERED: DOCUSATE SODIUM 100 MG CAPSULE. PO PRN (20:15)
[2018-10-06] MEDS ORDERED: LIDOCAINE HCL TP PRN (20:15)
[2018-10-06] MEDS ORDERED: cloNIDine HCL 0.1 MG TABLET PO PRN (20:15)
[2018-10-06] MEDS ORDERED: chlordiazePOXIDE HCL 25 MG CAPSULE PO PRN (20:15)
[2018-10-06] MEDS ORDERED: ACETAMINOPHEN/CODEINE 300/30MG TABLET. PO PRN (20:15)
[2018-10-06] MEDS ORDERED: CALCIUM CARBONATE 500 MG TAB.CHEW PO PRN (20:15)
[2018-10-06 20:50] VITALS: BP 148/93
--- NOTE | 2018-10-06 20:50 | NUR ---
Pt arrived via [place] accompanied by MECHANIC/WELDER and sitter. Pt able to ambulate unsteadily with assist of 2 to bed. RUST performed at that time - see NIH flowsheet. Pt oriented x4. Cooperative. Smells strongly of alcohol - appearance somewhat disheveled. Pt reported during admission data base that did have feelings of hurting himself. When asked if he had a plan - pt reported that he would shoot himself in the head. RN inquired if pt had access to a gun, pt denied. Pt placed on suicide watch per protocol. Sitter in room - clothes bagged and taken out to RN station and labeled. Items removed from room per protocol for suicidal pt. Will continue to monitor pt status closely. Addendum: 10/07/18 at 031 by FRANCISCO JAVIER BLAIR RN RN Nursing model and pattern supervisor made aware of pt statement around 2330 on 10/06/18. Transit Planner also notified that pt placed on suicide watch. Pt sleeping soundly in bed at time. Will continue to monitor,. Addendum: 10/07/18 at 032 by FRANCISCO JAVIER BLAIR RN RN [id number]: Pt awake and drinking water - JUANWA performed - alert and oriented x 4. Denied feelings of being suicidal. Neuro check done - pt WNL. Will continue to monitor pt status closely.
--- NOTE | 2018-10-06 20:50 | RAD ---
AP chest x-ray HISTORY: Stroke symptoms. COMPARISON: Chest x-ray September 05, 2017. FINDINGS: Heart size is normal. Mediastinal silhouette is normal. No pneumothorax, pulmonary opacities or pleural effusions. The bones are unremarkable. IMPRESSION: No acute process. Electronically signed by: Luis Manuel Melara MD (10/06/2018 8:47 PM) [employer]
[2018-10-06] MEDS: BACLOFEN 10 MG TABLET. PO SCH (21:00)
[2018-10-06] MEDS ORDERED: MIRTAZAPINE 7.5 MG TABLET. PO SCH (21:00)
[2018-10-06] MEDS ORDERED: GABAPENTIN 100 MG CAPSULE. PO SCH (21:00)
[2018-10-06] MEDS ORDERED: levETIRAcetam 500 MG TABLET PO SCH (21:00)
[2018-10-06] MEDS ORDERED: FAMOTIDINE 20 MG TABLET. PO SCH (21:00)
[2018-10-06] MEDS ORDERED: ONDANSETRON ODT 4 MG TAB.RAPDIS. PO PRN (21:15)
[2018-10-06] MEDS ORDERED: TRIAMCINOLONE ACETONIDE 0.1% TOPICAL CREAM 15GM TUBE. TP PRN (21:15)
[2018-10-06] MEDS ORDERED: traZODone 50 MG TABLET. PO PRN (21:15)
[2018-10-06] MEDS ORDERED: MINERAL OIL/PETROLATUM TOPICAL CREAM 113GM JAR. TP PRN (21:15)
[2018-10-06 23:04] VITALS: BP 101/62
--- NOTE | 2018-10-06 23:34 | PDOC2 ---
NEUROLOGY CONSULT Date of Admission Date of Admission Full Report Dictated Patient is a 57-year-old alcoholic who presented with a very high alcohol level and 2 days of right-sided weakness. There is concern he may have suffered a stroke. CT scan of the head was negative. Neurologic exam was not valid because of the high alcohol level and Ativan he received for agitation and alcohol withdrawal. He will have an MRI of his head tomorrow morning. I will be happy to reevaluate. He is not able to take by mouth swallow I will use intravenous thiamine for 3 days. DATE: 10/06/18 TIME: 23:33 Current Medications Current Medications Current Medications Lorazepam (Ativan Inj) 2 mg 1X ONCE IV Last administered on 10/06/18at 19:01; Start 10/06/18 at 19:00; Stop 10/06/18 at 19:01; Status DC Multivitamins 10 ml/Thiamine HCl 100 mg/Folic Acid 1 mg/Sodium Chloride 1,011.2 ml @ 1,000.088 mls/hr 1X ONCE IV Last administered on 10/06/18at 19:26; Start 10/06/18 at 19:30; Stop 10/06/18 at 20:30; Status DC Sodium Chloride 1,000 ml @ 1,000 mls/hr 1X ONCE IV Last administered on 10/06/18at 19:19; Start 10/06/18 at 19:15; Stop 10/06/18 at 20:14; Status DC Ondansetron HCl (Zofran) 4 mg PRN Q8HRS PRN IV NAUSEA/VOMITING; Start 10/06/18 at 19:30; Stop 10/06/18 at 20:10; Status DC Sodium Chloride 1,000 ml @ 125 mls/hr 1X ONCE IV ; Start 10/06/18 at 19:30; Stop 10/07/18 at 03:29 Lorazepam (Ativan Inj) 2 mg 1X ONCE IV Last administered on 10/06/18at 20:12; Start 10/06/18 at 20:15; Stop 10/06/18 at 20:16; Status DC Ondansetron HCl (Zofran) 4 mg PRN Q6HRS PRN IV NAUSEA/VOMITING; Start 10/06/18 at 20:15 Acetaminophen (Tylenol) 500 mg PRN Q6HRS PRN PO HEADACHE / TEMP; Start 10/06/18 at 20:15 Acetaminophen/ Codeine Phosphate (Tylenol #3) 1 tab PRN Q6HRS PRN PO PAIN MILD; Start 10/06/18 at 20:15 Multivitamins 10 ml/Thiamine HCl 100 mg/Folic Acid 1 mg/Sodium Chloride 1,011.2 ml @ 1,000.088 mls/hr DAILY IV ; Start 10/07/18 at 09:00; Stop 10/10/18 at 09:00 Chlordiazepoxide (Librium) 25 mg PRN Q6HRS PRN PO ANXIETY / AGITATION; Start 10/06/18 at 20:15 Lorazepam (Ativan Inj) 2 mg PRN Q4HRS PRN IV ANXIETY / AGITATION; Start 10/06/18 at 20:15 Clonidine HCl (Catapres) 0.1 mg PRN Q1HR PRN PO HYPERTENSION; Start 10/06/18 at 20:15 Baclofen (Lioresal) 5 mg TID PO ; Start 10/06/18 at 21:00 Docusate Sodium (Colace) 100 mg PRN BID PRN PO HARD STOOLS; Start 10/06/18 at 20:15 Famotidine (Pepcid) 20 mg HS PO ; Start 10/06/18 at 21:00 Gabapentin (Neurontin) 100 mg QHS PO ; Start 10/06/18 at 21:00 Acetaminophen/ Hydrocodone Bitart (Lortab 5/325) 1 tab PRN Q6HRS PRN PO PAIN MODERATE; Start 10/06/18 at 20:15 Levetiracetam (Keppra) 1,500 mg QHS PO ; Start 10/06/18 at 21:00 Fish Oil (Fish Oil) 1,000 mg DAILY PO ; Start 10/07/18 at 09:00 Multi-Ingred Cream/Lotion/Oil/ Oint (Hydrocerin Cream) 1 radha PRN BID PRN TP DRY SKIN / SCALING; Start 10/06/18 at 21:15 Non-Formulary Medication (Lactose-Reduced Food (Nutritional Shake)) 237 ml DAILY PO ; Start 10/07/18 at 09:00; Status UNV Non-Formulary Medication (Lidocaine HCl/ Menthol (Lidozengel 4%-1%)) 120 ml PRN BID PRN TP ITCHING; Start 10/06/18 at 20:15; Status UNV Mirtazapine (Remeron) 7.5 mg QHS PO ; Start 10/06/18 at 21:00 Multivitamins (Thera M Plus) 1 tab DAILY PO ; Start 10/11/18 at 09:00 Ondansetron HCl (Zofran Odt) 4 mg PRN Q12HRS PRN PO NAUSEA/VOMITING; Start 10/06/18 at 21:15 Thiamine Mononitrate (Vitamin B-1) 100 mg DAILY PO ; Start 10/07/18 at 09:00 Trazodone HCl (Desyrel) 150 mg PRN QHS PRN PO INSOMNIA; Start 10/06/18 at 21:15 Triamcinolone Acetonide (Kenalog) 1 radha PRN DAILY PRN TP ITCHING; Start 10/06/18 at 21:15 Calcium Carbonate/ Glycine (Tums) 500 mg PRN AFTMEALHC PRN PO INDIGESTION; Start 10/06/18 at 20:15 Nicotine (Nicoderm Cq 21mg) 1 patch PRN DAILY PRN TD SMOKING CESSATION; Start 10/06/18 at 20:15 Active Scripts Active Pepcid (Famotidine) 20 Mg Tablet 20 Mg PO HS Zofran (Ondansetron Hcl) 4 Mg Tablet 4 Mg PO BID PRN Reported Keppra (Levetiracetam) 500 Mg Tablet 1,500 Mg PO QHS Hydrocodone-Apap 5-325 (Hydrocodone Bit/Acetaminophen) 1 Each Tablet 1 Tab PO PRN Q6HRS PRN Gabapentin (Gabapentin) 100 Mg Capsule 100 Mg PO QHS Triamcinolone Acetonide 0.025% Cream (Triamcinolone Acetonide) 15 Gm Cream..g. 1 Radha TP DAILY Trazodone Hcl 150 Mg Tablet 1 Tab PO QHS Thiamine Hcl 100 Mg Tablet 100 Mg PO DAILY Nutritional Shake (Lactose-Reduced Food) 237 Ml Liquid 237 Ml PO DAILY Multivitamins (Multivitamin) 1 Each Tablet 1 Tab PO DAILY Mirtazapine 15 Mg Tablet 0.5 Tab PO QHS Lidozengel 4%-1% (Lidocaine HCl/Menthol) 120 Ml Gel..ml. 120 Ml TP PRN BID PRN Hydrophilic Ointment 410 Gm Oint...g. 410 Gm TP BID Fish Oil 1,000 Mg Capsule (Collins-3 Fatty Acids/Fish Oil) 1 Each Capsule 1 Each PO DAILY Colace (Docusate Sodium) 100 Mg Capsule 1 Cap PO PRN BID PRN Baclofen 10 Mg Tablet 5 Mg PO TID Allergies Allergies: Coded Allergies: Antihistamines - Alkylamine (Verified Allergy, Intermediate, 10/16/16) Antihistamines - Ethanolamine (Verified Allergy, Intermediate, 10/16/16) Antihistamines - Ethylenediamine (Verified Allergy, Intermediate, 10/16/16) Antihistamines - Piperazine (Verified Allergy, Intermediate, 10/16/16) Antihistamines - Piperidine (Verified Allergy, Intermediate, 10/16/16) ibuprofen (Verified Allergy, Intermediate, 10/16/16) Vitals VITALS Vital Signs Date Time Temp Pulse Resp B/P (MAP) Pulse Ox O2 Delivery O2 Flow Rate FiO2 10/06/18 23:04 98.1 83 15 101/62 (75) 93 Room Air 98.1 Labs Labs Laboratory Tests Test 10/06/18 17:48 10/06/18 18:00 10/06/18 18:21 10/06/18 18:57 Glucose (Fingerstick) 86 mg/dL (70-99) White Blood Count 5.4 x10^3/uL (4.0-11.0) Red Blood Count 3.90 x10^6/uL (4.30-5.70) Hemoglobin 12.8 g/dL (13.0-17.5) Hematocrit 36.8 % (39.0-53.0) Mean Corpuscular Volume 94 fL (79-100) Mean Corpuscular Hemoglobin 33 pg (25-35) Mean Corpuscular Hemoglobin Concent 35 g/dL (31-37) Red Cell Distribution Width 17.0 % (11.5-14.5) Platelet Count 278 x10^3/uL (140-400) Neutrophils (%) (Auto) 40 % (31-73) Lymphocytes (%) (Auto) 50 % (24-48) Monocytes (%) (Auto) 6 % (0-9) Eosinophils (%) (Auto) 3 % (0-3) Basophils (%) (Auto) 1 % (0-3) Neutrophils # (Auto) 2.2 x10^3uL (1.8-7.7) Lymphocytes # (Auto) 2.7 x10^3/uL (1.0-4.8) Monocytes # (Auto) 0.3 x10^3/uL (0.0-1.1) Eosinophils # (Auto) 0.2 x10^3/uL (0.0-0.7) Basophils # (Auto) 0.0 x10^3/uL (0.0-0.2) Prothrombin Time 12.4 SEC (11.7-14.0) Prothromb Time International Ratio 1.0 (0.8-1.1) Activated Partial Thromboplast Time 30 SEC (24-38) Sodium Level 142 mmol/L (136-145) Potassium Level 3.9 mmol/L (3.5-5.1) Chloride Level 100 mmol/L (98-107) Carbon Dioxide Level 22 mmol/L (21-32) Anion Gap 20 (6-14) Blood Urea Nitrogen 9 mg/dL (8-26) Creatinine 0.9 mg/dL (0.7-1.3) Estimated GFR (Cockcroft-Gault) 105.2 BUN/Creatinine Ratio 10 (6-20) Glucose Level 76 mg/dL (70-99) Calcium Level 8.9 mg/dL (8.5-10.1) Magnesium Level 2.0 mg/dL (1.8-2.4) Total Bilirubin 0.3 mg/dL (0.2-1.0) Aspartate Amino Transf (AST/SGOT) 39 U/L (15-37) Alanine Aminotransferase (ALT/SGPT) 32 U/L (16-63) Alkaline Phosphatase 129 U/L (46-116) Creatine Kinase 72 U/L (39-308) Creatine Kinase MB (Mass) < 0.5 ng/mL (0.0-3.6) Creatine Kinase MB Relative Index % (0-4) Troponin I Quantitative < 0.017 ng/mL (0.000-0.055) BH-Bqn-U-Type Natriuretic Peptide 15 pg/mL (0-124) Total Protein 7.8 g/dL (6.4-8.2) Albumin 4.3 g/dL (3.4-5.0) Albumin/Globulin Ratio 1.2 (1.0-1.7) Thyroid Stimulating Hormone (TSH) 0.229 uIU/mL (0.358-3.74) Ethyl Alcohol Level 427 mg/dL (0-10) Lactic Acid Level 2.9 mmol/L (0.4-2.0) Ammonia 19 mcmol/L (11-34) Urine Opiates Screen Neg (NEG) Urine Methadone Screen Neg (NEG) Urine Barbiturates Neg (NEG) Urine Phencyclidine Screen Neg (NEG) Urine Amphetamine/Methamphetamine Neg (NEG) Urine Benzodiazepines Screen Neg (NEG) Urine Cocaine Screen Neg (NEG) Urine Cannabinoids Screen Neg (NEG) Urine Ethyl Alcohol Pos (NEG) Laboratory Tests Test 10/06/18 17:48 10/06/18 18:00 10/06/18 18:21 10/06/18 18:57 Glucose (Fingerstick) 86 mg/dL (70-99) White Blood Count 5.4 x10^3/uL (4.0-11.0) Red Blood Count 3.90 x10^6/uL (4.30-5.70) Hemoglobin 12.8 g/dL (13.0-17.5) Hematocrit 36.8 % (39.0-53.0) Mean Corpuscular Volume 94 fL (79-100) Mean Corpuscular Hemoglobin 33 pg (25-35) Mean Corpuscular Hemoglobin Concent 35 g/dL (31-37) Red Cell Distribution Width 17.0 % (11.5-14.5) Platelet Count 278 x10^3/uL (140-400) Neutrophils (%) (Auto) 40 % (31-73) Lymphocytes (%) (Auto) 50 % (24-48) Monocytes (%) (Auto) 6 % (0-9) Eosinophils (%) (Auto) 3 % (0-3) Basophils (%) (Auto) 1 % (0-3) Neutrophils # (Auto) 2.2 x10^3uL (1.8-7.7) Lymphocytes # (Auto) 2.7 x10^3/uL (1.0-4.8) Monocytes # (Auto) 0.3 x10^3/uL (0.0-1.1) Eosinophils # (Auto) 0.2 x10^3/uL (0.0-0.7) Basophils # (Auto) 0.0 x10^3/uL (0.0-0.2) Prothrombin Time 12.4 SEC (11.7-14.0) Prothromb Time International Ratio 1.0 (0.8-1.1) Activated Partial Thromboplast Time 30 SEC (24-38) Sodium Level 142 mmol/L (136-145) Potassium Level 3.9 mmol/L (3.5-5.1) Chloride Level 100 mmol/L (98-107) Carbon Dioxide Level 22 mmol/L (21-32) Anion Gap 20 (6-14) Blood Urea Nitrogen 9 mg/dL (8-26) Creatinine 0.9 mg/dL (0.7-1.3) Estimated GFR (Cockcroft-Gault) 105.2 BUN/Creatinine Ratio 10 (6-20) Glucose Level 76 mg/dL (70-99) Calcium Level 8.9 mg/dL (8.5-10.1) Magnesium Level 2.0 mg/dL (1.8-2.4) Total Bilirubin 0.3 mg/dL (0.2-1.0) Aspartate Amino Transf (AST/SGOT) 39 U/L (15-37) Alanine Aminotransferase (ALT/SGPT) 32 U/L (16-63) Alkaline Phosphatase 129 U/L (46-116) Creatine Kinase 72 U/L (39-308) Creatine Kinase MB (Mass) < 0.5 ng/mL (0.0-3.6) Creatine Kinase MB Relative Index % (0-4) Troponin I Quantitative < 0.017 ng/mL (0.000-0.055) PP-Tak-K-Type Natriuretic Peptide 15 pg/mL (0-124) Total Protein 7.8 g/dL (6.4-8.2) Albumin 4.3 g/dL (3.4-5.0) Albumin/Globulin Ratio 1.2 (1.0-1.7) Thyroid Stimulating Hormone (TSH) 0.229 uIU/mL (0.358-3.74) Ethyl Alcohol Level 427 mg/dL (0-10) Lactic Acid Level 2.9 mmol/L (0.4-2.0) Ammonia 19 mcmol/L (11-34) Urine Opiates Screen Neg (NEG) Urine Methadone Screen Neg (NEG) Urine Barbiturates Neg (NEG) Urine Phencyclidine Screen Neg (NEG) Urine Amphetamine/Methamphetamine Neg (NEG) Urine Benzodiazepines Screen Neg (NEG) Urine Cocaine Screen Neg (NEG) Urine Cannabinoids Screen Neg (NEG) Urine Ethyl Alcohol Pos (NEG) JAMEE HINTON MD Oct 06, 2018 23:34
[2018-10-07 02:37] VITALS: BP 104/64
[2018-10-07 04:51] LABS: BASO # 0.1 x10^3/uL (0.0-0.2); BASO % 3 % (0-3); EOS # 0.2 x10^3/uL (0.0-0.7); EOS % 5 % (0-3); HEMOGLOBIN 11.9 g/dL (13.0-17.5); LYMPH # 2.3 x10^3/uL (1.0-4.8); LYMPH % 54 % (24-48); MEAN CORPUSCULAR HEMOGLOBIN 32 pg (25-35); MEAN CORPUSCULAR HGB CONC 34 g/dL (31-37); MEAN CORPUSCULAR VOLUME 95 fL (79-100); MONO # 0.3 x10^3/uL (0.0-1.1); MONO % 8 % (0-9); NEUT # 1.3 x10^3uL (1.8-7.7); NEUT % 30 % (31-73); PLATELET COUNT 242 x10^3/uL (140-400); RED BLOOD COUNT 3.69 x10^6/uL (4.30-5.70); RED CELL DISTRIBUTION WIDTH 17.4 % (11.5-14.5); WHITE BLOOD COUNT 4.4 x10^3/uL (4.0-11.0)
--- NOTE | 2018-10-07 05:01 | CONS ---
DATE OF CONSULTATION: 10/06/2018 REFERRING PHYSICIAN: Dr. Fagan. REASON FOR CONSULTATION: Possible stroke. HISTORY OF PRESENT ILLNESS: The patient is a longstanding alcoholic who presents with severe intoxication and complaints of weakness. Weakness began on 10/04/2018. Paramedics were summoned, but he refused care and transport. Finally, his fiancee talked to him and his daughter talked to him into coming to the Emergency Department. He had been having right-sided weakness and difficulty walking. In the Emergency Room, although he was intoxicated and poorly cooperative, they felt he had an NIH scale of 10. He was not a TPA candidate because symptoms have been going on for 48 hours. In the Emergency Room, he became very combative and he was given Ativan. He is now quite sedated and minimally responsive for my examination. Staff in the room had spoken with family members who are no longer present. They state that he drinks from the moment the liquor store opens until it closes. He is dedicated to his drinking. He has not had any lapse in his drinking. Previously when he had stopped drinking, he has had withdrawal seizures. He was seen by the Neurology service at [place] for admissions on 09/06/2017 and 05/31/2017. PAST MEDICAL HISTORY: 1. Alcoholism. 2. Bipolar disorder with depression. 3. Hypertension. 4. Posttraumatic stress disorder. 5. Surgery to the right arm. 6. Right ear surgery. 7. Polysubstance abuse with benzodiazepines and cocaine. ALLERGIES: ANTIHISTAMINES, ALKYLAMINE, ETHANOLAMINE, PIPERAZINE, and IBUPROFEN. FAMILY HISTORY: Parents of natural causes. SOCIAL HISTORY: He is single, but has a girlfriend. He is unemployed. He drinks alcohol constantly. He smokes tobacco. He uses recreational drugs. REVIEW OF SYSTEMS: He is not a reliable historian. He did wake up enough to state he was not in pain and he was not cold. PHYSICAL EXAMINATION: VITAL SIGNS: Blood pressure was 101/62, pulse 83, respirations 15, temperature 98.1 degrees axillary, and his oximetry was 93% on room air. His weight was 61.7 kilograms and height 65 inches with a calculated body mass index of 22.6. GENERAL: He was lying in the bed, in no distress. His eyes were closed and he was sleeping. With stimulation, he would briefly open his eyes. Speech was largely unintelligible, but he was able to wake up enough to answer a few simple questions, but drift off almost immediately. He really did not have the ability to follow many commands. He could squeeze my hands. He appeared well groomed and well nourished. NEUROLOGIC: Examination of the cranial nerves revealed visual field testing was not possible. He was too asleep, even for oculocephalic reflex. Pupils were 3 mm and reactive. He did not respond to loud clap. The neck was supple without any rigidity. Muscle bulk and tone was normal. There was no spasticity. Power testing was really not possible as he could not wake up enough. I did get him once to squeeze my hands and he squeezed better with the right arm than the left. Reflexes were absent in the upper extremities, present in the left leg, not in the right leg, and absent at the ankles. Toes were downgoing bilaterally. Coordination testing was not possible. He did not respond even to nail bed pressure. Gait was not testable. Auscultation of the carotid arteries did not reveal a bruit. Heart rhythm is regular, without a murmur. Peripheral pulses were symmetric in the hands and feet. There was no edema or cyanosis. There was no rash. There are no major abrasions or bruises. REVIEW OF LABORATORY DATA: CBC revealed a normal white blood cell count and platelet count. Hemoglobin was low at 12.8 and hematocrit at 36.8. Chemistries revealed normal CPK and BNP. Troponin was not elevated. Ammonia was 19. TSH was low at 0.229. Electrolytes were normal. He had 20 anion gap. Creatinine was 0.9 and BUN was 9 with a calculated GFR 105.2. Glucose was normal. Calcium and magnesium were normal. AST was elevated at 39 and alkaline phosphatase 129. Total protein and albumin were normal. Ethyl alcohol serum level was 427. Urine drug screen was positive for alcohol, but no other drugs. PT/INR was 1 and PTT was 30. IMAGING: CT scan of the head was performed 10/06/2018 and did not reveal an acute intracranial process. This was compared to the study of 09/05/2017 without any interval change. IMPRESSION: The patient is an alcoholic individual with history of polysubstance abuse, who had a very high alcohol level upon admission. Daughter believes he has not had any lapse in his devotion to alcohol consumption. Nobody has witnessed any seizure. I am not certain he has had a stroke. It is very difficult to say because of his highly intoxicated state. If in fact, he had symptoms beginning on . I would anticipate an abnormality on the CAT scan by now. RECOMMENDATIONS: The alcohol withdrawal protocol has been initiated. We will need to watch for signs of alcohol withdrawal. He has received some Ativan. I will be happy to reevaluate. We can obtain an MRI brain, which would be much more sensitive for stroke. JAMEE HINTON MD DR: JOAQUIN/placido JOB#: [id number] / [id number]
[2018-10-07 05:11] LABS: ALBUMIN 3.4 g/dL (3.4-5.0); CALCIUM 7.9 mg/dL (8.5-10.1); CREATININE 0.8 mg/dL (0.7-1.3); GFR 120.6; POTASSIUM 3.7 mmol/L (3.5-5.1); TOTAL BILIRUBIN 0.5 mg/dL (0.2-1.0); TOTAL PROTEIN 6.8 g/dL (6.4-8.2)
[2018-10-07 06:49] VITALS: BP 124/68
[2018-10-07] MEDS: THIAMINE INJ 100 MG in IV DEXTROSE 5% 50 ML IV SCH ×3 (08:59)
[2018-10-07] MEDS: BACLOFEN 10 MG TABLET. PO SCH ×2 (08:59→13:31)
[2018-10-07] MEDS ORDERED: LACTOSE REDUCED FOOD PO SCH (09:00)
[2018-10-07] MEDS ORDERED: OMEGA-3 FATTY ACIDS/FISH OIL 1,000 MG CAPSULE. PO SCH (09:00)
[2018-10-07] MEDS ORDERED: MULTIVIT INFUSN,ADULT 4,VIT K 10 ML, THIAMINE INJ 100 MG, FOLIC ACID INJ 1 MG in IV NOR... IV SCH (09:00)
[2018-10-07 11:00] VITALS: BP 144/77
[2018-10-07] MEDS ORDERED: GADOTERATE 7.5 MMOL/15ML VIAL. IVP ONE (11:30)
--- NOTE | 2018-10-07 12:23 | RAD ---
MRI brain without and with contrast COMPARISON: CT head August 2017. TECHNIQUE: Multiplanar MR imaging the brain was acquired without and with 13 mL Dotarem gadolinium intravenous contrast. HISTORY: Right-sided weakness. Recent seizure. FINDINGS: No acute ischemic infarction. No pathologic diffusion weighted signal abnormality of the brain. Single 3 mm T2-weighted hyperintense lesion left anterior frontal lobe white matter FLAIR and 16 of doubtful significance likely a small focus of chronic microvascular ischemic injury or sequela of migraine headaches. No evidence of mesial temporal sclerosis with no atrophy or gliosis of the hippocampi and temporal lobes evident. No intracranial hemorrhage, mass, hydrocephalus, extra-axial fluid collections or infarction. Intracranial vascular flow voids are intact. No intracranial enhancing mass or pathologic intracranial enhancement. Right mastoidectomy, there is mild fluid and mucosal enhancement filling the mastoidectomy. There is mild fluid enhancement of the left mastoid air cells. Orbits unremarkable. Maxillary sinus and ethmoid sinus mucosal thickening and partial opacification. IMPRESSION: No acute intracranial MRI abnormality. Right mastoidectomy with mild fluid and mucosal enhancement at the surgical defect. Left mastoid air cells demonstrate fluid and enhancement which could be indicative of mastoiditis. Electronically signed by: Luis Manuel Melara MD (10/07/2018 12:20 PM) [facility]
--- NOTE | 2018-10-07 13:34 | PDOC1 ---
History and Physical Date of Admission Date of Admission DATE: 10/07/18 TIME: 13:29 Identification/Chief Complaint Chief Complaint etoh intoxication and suicide thought Source Source: Caregiver, Chart review, Patient History of Present Illness History of Present Illness 57-year-old -[place] male who almost left AMA in the ER but was too unstable in his gait so he was admitted. He is Alcohol intoxicated with a levels of 457 the rest of the labs show a gap of 17, WBC 4, anemia with hemoglobin 11 but adequate platelets. His MRI of the brain was ordered because of some focal neuro deficits in this alcoholic but that is negative and only showed sinus disease. Neurology was also consulted There are some notes of mention SI, ie, clear plan of shooting himself in the head -which patient adamantly denies - HE wants to leave now. He does not want to see a mental psych counselor His gait is steady Daughter is \TO and she brought her dad in, But in the light of this new information where there was mention of shooting himself in the head-I want him to be seen by PAT team and will not allow AMA. Hopefully will not escalate to a code rosas or that I wont be needing to sedate him to be assessed by PAT team Discussed with sitter at bedside Past Medical History Cardiovascular: HTN Pulmonary: No pertinent hx CENTRAL NERVOUS SYSTEM: Seizure GI: No pertinent hx, GERD Heme/Onc: No pertinent hx Hepatobiliary: No pertinent hx Psych: Addictions, Bipolar, Depression, Other Rheumatologic: No pertinent hx Infectious disease: No pertinent hx Renal/: No pertinent hx Endocrine: No pertinent hx Past Surgical History Past Surgical History: No pertinent history Family History Family History: Hypertension Social History Smoke: No ALCOHOL: heavy Drugs: Other Current Problem List Problem List Problems Medical Problems: (1) Alcohol intoxication Status: Acute Current Medications Current Medications Current Medications Lorazepam (Ativan Inj) 2 mg 1X ONCE IV Last administered on 10/06/18at 19:01; Start 10/06/18 at 19:00; Stop 10/06/18 at 19:01; Status DC Multivitamins 10 ml/Thiamine HCl 100 mg/Folic Acid 1 mg/Sodium Chloride 1,011.2 ml @ 1,000.088 mls/hr 1X ONCE IV Last administered on 10/06/18at 19:26; Start 10/06/18 at 19:30; Stop 10/06/18 at 20:30; Status DC Sodium Chloride 1,000 ml @ 1,000 mls/hr 1X ONCE IV Last administered on 10/06/18at 19:19; Start 10/06/18 at 19:15; Stop 10/06/18 at 20:14; Status DC Ondansetron HCl (Zofran) 4 mg PRN Q8HRS PRN IV NAUSEA/VOMITING; Start 10/06/18 at 19:30; Stop 10/06/18 at 20:10; Status DC Sodium Chloride 1,000 ml @ 125 mls/hr 1X ONCE IV Last administered on 10/06/18at 23:59; Start 10/06/18 at 19:30; Stop 10/07/18 at 03:29; Status DC Lorazepam (Ativan Inj) 2 mg 1X ONCE IV Last administered on 10/06/18at 20:12; Start 10/06/18 at 20:15; Stop 10/06/18 at 20:16; Status DC Ondansetron HCl (Zofran) 4 mg PRN Q6HRS PRN IV NAUSEA/VOMITING; Start 10/06/18 at 20:15 Acetaminophen (Tylenol) 500 mg PRN Q6HRS PRN PO HEADACHE / TEMP Last administered on 10/07/18at 12:29; Start 10/06/18 at 20:15 Acetaminophen/ Codeine Phosphate (Tylenol #3) 1 tab PRN Q6HRS PRN PO PAIN MILD; Start 10/06/18 at 20:15 Multivitamins 10 ml/Thiamine HCl 100 mg/Folic Acid 1 mg/Sodium Chloride 1,011.2 ml @ 1,000.088 mls/hr DAILY IV Last administered on 10/07/18at 09:00; Start 10/07/18 at 09:00; Stop 10/10/18 at 09:00 Chlordiazepoxide (Librium) 25 mg PRN Q6HRS PRN PO ANXIETY / AGITATION; Start 10/06/18 at 20:15 Lorazepam (Ativan Inj) 2 mg PRN Q4HRS PRN IV ANXIETY / AGITATION; Start 10/06/18 at 20:15 Clonidine HCl (Catapres) 0.1 mg PRN Q1HR PRN PO HYPERTENSION; Start 10/06/18 at 20:15 Baclofen (Lioresal) 5 mg TID PO Last administered on 10/07/18at 08:59; Start 10/06/18 at 21:00 Docusate Sodium (Colace) 100 mg PRN BID PRN PO HARD STOOLS; Start 10/06/18 at 20:15 Famotidine (Pepcid) 20 mg HS PO ; Start 10/06/18 at 21:00 Gabapentin (Neurontin) 100 mg QHS PO ; Start 10/06/18 at 21:00 Acetaminophen/ Hydrocodone Bitart (Lortab 5/325) 1 tab PRN Q6HRS PRN PO PAIN MODERATE; Start 10/06/18 at 20:15 Levetiracetam (Keppra) 1,500 mg QHS PO ; Start 10/06/18 at 21:00 Fish Oil (Fish Oil) 1,000 mg DAILY PO Last administered on 10/07/18at 08:59; Start 10/07/18 at 09:00 Multi-Ingred Cream/Lotion/Oil/ Oint (Hydrocerin Cream) 1 radha PRN BID PRN TP DRY SKIN / SCALING; Start 10/06/18 at 21:15 Non-Formulary Medication (Lactose-Reduced Food (Nutritional Shake)) 237 ml DAILY PO ; Start 10/07/18 at 09:00; Status UNV Non-Formulary Medication (Lidocaine HCl/ Menthol (Lidozengel 4%-1%)) 120 ml PRN BID PRN TP ITCHING; Start 10/06/18 at 20:15; Status UNV Mirtazapine (Remeron) 7.5 mg QHS PO ; Start 10/06/18 at 21:00 Multivitamins (Thera M Plus) 1 tab DAILY PO ; Start 10/11/18 at 09:00 Ondansetron HCl (Zofran Odt) 4 mg PRN Q12HRS PRN PO NAUSEA/VOMITING; Start 10/06/18 at 21:15 Thiamine Mononitrate (Vitamin B-1) 100 mg DAILY PO ; Start 10/10/18 at 09:00 Trazodone HCl (Desyrel) 150 mg PRN QHS PRN PO INSOMNIA; Start 10/06/18 at 21:15 Triamcinolone Acetonide (Kenalog) 1 radha PRN DAILY PRN TP ITCHING; Start 10/06/18 at 21:15 Calcium Carbonate/ Glycine (Tums) 500 mg PRN AFTMEALHC PRN PO INDIGESTION; Start 10/06/18 at 20:15 Nicotine (Nicoderm Cq 21mg) 1 patch PRN DAILY PRN TD SMOKING CESSATION; Start 10/06/18 at 20:15 Thiamine HCl 100 mg/Dextrose 51 ml @ 102 mls/hr BID IV Last administered on 10/07/18at 08:59; Start 10/06/18 at 23:30; Stop 10/09/18 at 09:29 Gadoterate Meglumine (Dotarem) 13.2 ml 1X ONCE IVP Last administered on 9at 11:42; Start 10/07/18 at 11:30; Stop 10/07/18 at 11:31; Status DC Active Scripts Active Pepcid (Famotidine) 20 Mg Tablet 20 Mg PO HS Zofran (Ondansetron Hcl) 4 Mg Tablet 4 Mg PO BID PRN Reported Keppra (Levetiracetam) 500 Mg Tablet 1,500 Mg PO QHS Hydrocodone-Apap 5-325 (Hydrocodone Bit/Acetaminophen) 1 Each Tablet 1 Tab PO PRN Q6HRS PRN Gabapentin (Gabapentin) 100 Mg Capsule 100 Mg PO QHS Triamcinolone Acetonide 0.025% Cream (Triamcinolone Acetonide) 15 Gm Cream..g. 1 Radha TP DAILY Trazodone Hcl 150 Mg Tablet 1 Tab PO QHS Thiamine Hcl 100 Mg Tablet 100 Mg PO DAILY Nutritional Shake (Lactose-Reduced Food) 237 Ml Liquid 237 Ml PO DAILY Multivitamins (Multivitamin) 1 Each Tablet 1 Tab PO DAILY Mirtazapine 15 Mg Tablet 0.5 Tab PO QHS Lidozengel 4%-1% (Lidocaine HCl/Menthol) 120 Ml Gel..ml. 120 Ml TP PRN BID PRN Hydrophilic Ointment 410 Gm Oint...g. 410 Gm TP BID Fish Oil 1,000 Mg Capsule ([place]-3 Fatty Acids/Fish Oil) 1 Each Capsule 1 Each PO DAILY Colace (Docusate Sodium) 100 Mg Capsule 1 Cap PO PRN BID PRN Baclofen 10 Mg Tablet 5 Mg PO TID Allergies Allergies: Coded Allergies: Antihistamines - Alkylamine (Verified Allergy, Intermediate, 10/16/16) Antihistamines - Ethanolamine (Verified Allergy, Intermediate, 10/16/16) Antihistamines - Ethylenediamine (Verified Allergy, Intermediate, 10/16/16) Antihistamines - Piperazine (Verified Allergy, Intermediate, 10/16/16) Antihistamines - Piperidine (Verified Allergy, Intermediate, 10/16/16) ibuprofen (Verified Allergy, Intermediate, 10/16/16) ROS Review of System A 14 point ROS was completed with the following noted as positive: Other systems reviewed and negative. \CONSTITUTIONAL: No fever or chills EYES: No recent changes SKIN: No rash or itching CARDIOVASCULAR: No chest pain, syncope, palpitations, or edema RESPIRATORY: No SOB or cough GASTROINTESTINAL: No nausea, vomiting or abdominal pain NEUROLOGICAL: No headaches or weakness ENDOCRINE: No cold or heat intolerance GENITOURINARY: No urgency or frequency of urination MUSCULOSKELETAL: No back pain or joint pain LYMPHATICS: No enlarged lymph nodes PSYCHIATRIC: No anxiety or depression Physical Exam General: Alert, Oriented X3, Cooperative, No acute distress HEENT: Atraumatic, PERRLA, EOMI Lungs: Clear to auscultation, Normal air movement Heart: S1S2, RRR, no thrills, no rubs, no gallops, no murmurs Abdomen: Normal bowel sounds, Soft, No tenderness, No hepatosplenomegaly, No m asses Male Genitals Exam: normal genitalia, normal prostate Rectal Exam: not examined PELVIC: Nml ext genitalia Extremities: No clubbing, No cyanosis, No edema, Normal pulses, No tenderness/swelling Skin: No rashes, No breakdown, No significant lesion Neuro: Normal gait, Normal speech, Strength at 5/5 X4 ext, Normal tone, Sensation intact, Cranial nerves 3-12 NL, Reflexes 2+ Psych/Mental Status: Mental status NL, Mood NL Vitals Vitals Vital Signs Date Time Temp Pulse Resp B/P (MAP) Pulse Ox O2 Delivery O2 Flow Rate FiO2 10/07/18 11:00 100.4 82 18 144/77 (99) 98 Room Air 100.4 Labs Labs Laboratory Tests Test 10/06/18 17:48 10/06/18 18:00 10/06/18 18:21 10/06/18 18:57 Glucose (Fingerstick) 86 mg/dL (70-99) White Blood Count 5.4 x10^3/uL (4.0-11.0) Red Blood Count 3.90 x10^6/uL (4.30-5.70) Hemoglobin 12.8 g/dL (13.0-17.5) Hematocrit 36.8 % (39.0-53.0) Mean Corpuscular Volume 94 fL (79-100) Mean Corpuscular Hemoglobin 33 pg (25-35) Mean Corpuscular Hemoglobin Concent 35 g/dL (31-37) Red Cell Distribution Width 17.0 % (11.5-14.5) Platelet Count 278 x10^3/uL (140-400) Neutrophils (%) (Auto) 40 % (31-73) Lymphocytes (%) (Auto) 50 % (24-48) Monocytes (%) (Auto) 6 % (0-9) Eosinophils (%) (Auto) 3 % (0-3) Basophils (%) (Auto) 1 % (0-3) Neutrophils # (Auto) 2.2 x10^3uL (1.8-7.7) Lymphocytes # (Auto) 2.7 x10^3/uL (1.0-4.8) Monocytes # (Auto) 0.3 x10^3/uL (0.0-1.1) Eosinophils # (Auto) 0.2 x10^3/uL (0.0-0.7) Basophils # (Auto) 0.0 x10^3/uL (0.0-0.2) Prothrombin Time 12.4 SEC (11.7-14.0) Prothromb Time International Ratio 1.0 (0.8-1.1) Activated Partial Thromboplast Time 30 SEC (24-38) Sodium Level 142 mmol/L (136-145) Potassium Level 3.9 mmol/L (3.5-5.1) Chloride Level 100 mmol/L (98-107) Carbon Dioxide Level 22 mmol/L (21-32) Anion Gap 20 (6-14) Blood Urea Nitrogen 9 mg/dL (8-26) Creatinine 0.9 mg/dL (0.7-1.3) Estimated GFR (Cockcroft-Gault) 105.2 BUN/Creatinine Ratio 10 (6-20) Glucose Level 76 mg/dL (70-99) Calcium Level 8.9 mg/dL (8.5-10.1) Magnesium Level 2.0 mg/dL (1.8-2.4) Total Bilirubin 0.3 mg/dL (0.2-1.0) Aspartate Amino Transf (AST/SGOT) 39 U/L (15-37) Alanine Aminotransferase (ALT/SGPT) 32 U/L (16-63) Alkaline Phosphatase 129 U/L (46-116) Creatine Kinase 72 U/L (39-308) Creatine Kinase MB (Mass) < 0.5 ng/mL (0.0-3.6) Creatine Kinase MB Relative Index % (0-4) Troponin I Quantitative < 0.017 ng/mL (0.000-0.055) II-Wfb-I-Type Natriuretic Peptide 15 pg/mL (0-124) Total Protein 7.8 g/dL (6.4-8.2) Albumin 4.3 g/dL (3.4-5.0) Albumin/Globulin Ratio 1.2 (1.0-1.7) Thyroid Stimulating Hormone (TSH) 0.229 uIU/mL (0.358-3.74) Ethyl Alcohol Level 427 mg/dL (0-10) Lactic Acid Level 2.9 mmol/L (0.4-2.0) Ammonia 19 mcmol/L (11-34) Urine Opiates Screen Neg (NEG) Urine Methadone Screen Neg (NEG) Urine Barbiturates Neg (NEG) Urine Phencyclidine Screen Neg (NEG) Urine Amphetamine/Methamphetamine Neg (NEG) Urine Benzodiazepines Screen Neg (NEG) Urine Cocaine Screen Neg (NEG) Urine Cannabinoids Screen Neg (NEG) Urine Ethyl Alcohol Pos (NEG) Test 10/07/18 04:20 White Blood Count 4.4 x10^3/uL (4.0-11.0) Red Blood Count 3.69 x10^6/uL (4.30-5.70) Hemoglobin 11.9 g/dL (13.0-17.5) Hematocrit 35.0 % (39.0-53.0) Mean Corpuscular Volume 95 fL (79-100) Mean Corpuscular Hemoglobin 32 pg (25-35) Mean Corpuscular Hemoglobin Concent 34 g/dL (31-37) Red Cell Distribution Width 17.4 % (11.5-14.5) Platelet Count 242 x10^3/uL (140-400) Neutrophils (%) (Auto) 30 % (31-73) Lymphocytes (%) (Auto) 54 % (24-48) Monocytes (%) (Auto) 8 % (0-9) Eosinophils (%) (Auto) 5 % (0-3) Basophils (%) (Auto) 3 % (0-3) Neutrophils # (Auto) 1.3 x10^3uL (1.8-7.7) Lymphocytes # (Auto) 2.3 x10^3/uL (1.0-4.8) Monocytes # (Auto) 0.3 x10^3/uL (0.0-1.1) Eosinophils # (Auto) 0.2 x10^3/uL (0.0-0.7) Basophils # (Auto) 0.1 x10^3/uL (0.0-0.2) Sodium Level 143 mmol/L (136-145) Potassium Level 3.7 mmol/L (3.5-5.1) Chloride Level 105 mmol/L (98-107) Carbon Dioxide Level 21 mmol/L (21-32) Anion Gap 17 (6-14) Blood Urea Nitrogen 7 mg/dL (8-26) Creatinine 0.8 mg/dL (0.7-1.3) Estimated GFR (Cockcroft-Gault) 120.6 BUN/Creatinine Ratio 9 (6-20) Glucose Level 61 mg/dL (70-99) Lactic Acid Level 1.9 mmol/L (0.4-2.0) Calcium Level 7.9 mg/dL (8.5-10.1) Total Bilirubin 0.5 mg/dL (0.2-1.0) Aspartate Amino Transf (AST/SGOT) 33 U/L (15-37) Alanine Aminotransferase (ALT/SGPT) 25 U/L (16-63) Alkaline Phosphatase 105 U/L (46-116) Total Protein 6.8 g/dL (6.4-8.2) Albumin 3.4 g/dL (3.4-5.0) Albumin/Globulin Ratio 1.0 (1.0-1.7) Laboratory Tests Test 10/06/18 17:48 10/06/18 18:00 10/06/18 18:21 6/8/19 18:57 Glucose (Fingerstick) 86 mg/dL (70-99) White Blood Count 5.4 x10^3/uL (4.0-11.0) Red Blood Count 3.90 x10^6/uL (4.30-5.70) Hemoglobin 12.8 g/dL (13.0-17.5) Hematocrit 36.8 % (39.0-53.0) Mean Corpuscular Volume 94 fL (79-100) Mean Corpuscular Hemoglobin 33 pg (25-35) Mean Corpuscular Hemoglobin Concent 35 g/dL (31-37) Red Cell Distribution Width 17.0 % (11.5-14.5) Platelet Count 278 x10^3/uL (140-400) Neutrophils (%) (Auto) 40 % (31-73) Lymphocytes (%) (Auto) 50 % (24-48) Monocytes (%) (Auto) 6 % (0-9) Eosinophils (%) (Auto) 3 % (0-3) Basophils (%) (Auto) 1 % (0-3) Neutrophils # (Auto) 2.2 x10^3uL (1.8-7.7) Lymphocytes # (Auto) 2.7 x10^3/uL (1.0-4.8) Monocytes # (Auto) 0.3 x10^3/uL (0.0-1.1) Eosinophils # (Auto) 0.2 x10^3/uL (0.0-0.7) Basophils # (Auto) 0.0 x10^3/uL (0.0-0.2) Prothrombin Time 12.4 SEC (11.7-14.0) Prothromb Time International Ratio 1.0 (0.8-1.1) Activated Partial Thromboplast Time 30 SEC (24-38) Sodium Level 142 mmol/L (136-145) Potassium Level 3.9 mmol/L (3.5-5.1) Chloride Level 100 mmol/L (98-107) Carbon Dioxide Level 22 mmol/L (21-32) Anion Gap 20 (6-14) Blood Urea Nitrogen 9 mg/dL (8-26) Creatinine 0.9 mg/dL (0.7-1.3) Estimated GFR (Cockcroft-Gault) 105.2 BUN/Creatinine Ratio 10 (6-20) Glucose Level 76 mg/dL (70-99) Calcium Level 8.9 mg/dL (8.5-10.1) Magnesium Level 2.0 mg/dL (1.8-2.4) Total Bilirubin 0.3 mg/dL (0.2-1.0) Aspartate Amino Transf (AST/SGOT) 39 U/L (15-37) Alanine Aminotransferase (ALT/SGPT) 32 U/L (16-63) Alkaline Phosphatase 129 U/L (46-116) Creatine Kinase 72 U/L (39-308) Creatine Kinase MB (Mass) < 0.5 ng/mL (0.0-3.6) Creatine Kinase MB Relative Index % (0-4) Troponin I Quantitative < 0.017 ng/mL (0.000-0.055) SD-Zpc-S-Type Natriuretic Peptide 15 pg/mL (0-124) Total Protein 7.8 g/dL (6.4-8.2) Albumin 4.3 g/dL (3.4-5.0) Albumin/Globulin Ratio 1.2 (1.0-1.7) Thyroid Stimulating Hormone (TSH) 0.229 uIU/mL (0.358-3.74) Ethyl Alcohol Level 427 mg/dL (0-10) Lactic Acid Level 2.9 mmol/L (0.4-2.0) Ammonia 19 mcmol/L (11-34) Urine Opiates Screen Neg (NEG) Urine Methadone Screen Neg (NEG) Urine Barbiturates Neg (NEG) Urine Phencyclidine Screen Neg (NEG) Urine Amphetamine/Methamphetamine Neg (NEG) Urine Benzodiazepines Screen Neg (NEG) Urine Cocaine Screen Neg (NEG) Urine Cannabinoids Screen Neg (NEG) Urine Ethyl Alcohol Pos (NEG) Test 10/07/18 04:20 White Blood Count 4.4 x10^3/uL (4.0-11.0) Red Blood Count 3.69 x10^6/uL (4.30-5.70) Hemoglobin 11.9 g/dL (13.0-17.5) Hematocrit 35.0 % (39.0-53.0) Mean Corpuscular Volume 95 fL (79-100) Mean Corpuscular Hemoglobin 32 pg (25-35) Mean Corpuscular Hemoglobin Concent 34 g/dL (31-37) Red Cell Distribution Width 17.4 % (11.5-14.5) Platelet Count 242 x10^3/uL (140-400) Neutrophils (%) (Auto) 30 % (31-73) Lymphocytes (%) (Auto) 54 % (24-48) Monocytes (%) (Auto) 8 % (0-9) Eosinophils (%) (Auto) 5 % (0-3) Basophils (%) (Auto) 3 % (0-3) Neutrophils # (Auto) 1.3 x10^3uL (1.8-7.7) Lymphocytes # (Auto) 2.3 x10^3/uL (1.0-4.8) Monocytes # (Auto) 0.3 x10^3/uL (0.0-1.1) Eosinophils # (Auto) 0.2 x10^3/uL (0.0-0.7) Basophils # (Auto) 0.1 x10^3/uL (0.0-0.2) Sodium Level 143 mmol/L (136-145) Potassium Level 3.7 mmol/L (3.5-5.1) Chloride Level 105 mmol/L (98-107) Carbon Dioxide Level 21 mmol/L (21-32) Anion Gap 17 (6-14) Blood Urea Nitrogen 7 mg/dL (8-26) Creatinine 0.8 mg/dL (0.7-1.3) Estimated GFR (Cockcroft-Gault) 120.6 BUN/Creatinine Ratio 9 (6-20) Glucose Level 61 mg/dL (70-99) Lactic Acid Level 1.9 mmol/L (0.4-2.0) Calcium Level 7.9 mg/dL (8.5-10.1) Total Bilirubin 0.5 mg/dL (0.2-1.0) Aspartate Amino Transf (AST/SGOT) 33 U/L (15-37) Alanine Aminotransferase (ALT/SGPT) 25 U/L (16-63) Alkaline Phosphatase 105 U/L (46-116) Total Protein 6.8 g/dL (6.4-8.2) Albumin 3.4 g/dL (3.4-5.0) Albumin/Globulin Ratio 1.0 (1.0-1.7) VTE Prophylaxis Ordered VTE Prophylaxis Devices: Yes VTE Pharmacological Prophylaxi: Yes Assessment/Plan Assessment/Plan Alcohol intoxication with levels 457 on admission Sinus tachy in the background of alcoholism Toxic encephalopathy secondary #1 Sinus disease on MRI Anion gap 17 in the background of etoh Suicide intent Major depression PLAN: IV fluids or banana bag for now to help that acidosis and the elevated anion gap Wait for PAT team to come stat I cannot allow him to sign AMA He needs to be assessed By PAT team before I can safely discharge him from the hospital Discussed with sitter at bedside RIANA ANGLIN MD Oct 07, 2018 13:34
[2018-10-07 15:00] VITALS: BP 144/82
--- NOTE | 2018-10-07 15:59 | PDOC3 ---
Discharge Summary Visit Information Date of Admission: Oct 06, 2018 Date of Discharge: Oct 07, 2018 Admitting Diagnosis Comment: alcohol intox Suicide ideation but cleared for OP by psych Final Diagnosis Problems Medical Problems: (1) Alcohol intoxication Status: Acute Brief Hospital Course Allergies Allergies Coded Allergies Type Severity Reaction Last Updated Verified Antihistamines - Alkylamine Allergy Intermediate 10/16/16 Yes Antihistamines - Ethanolamine Allergy Intermediate 10/16/16 Yes Antihistamines - Ethylenediamine Allergy Intermediate 10/16/16 Yes Antihistamines - Piperazine Allergy Intermediate 10/16/16 Yes Antihistamines - Piperidine Allergy Intermediate 10/16/16 Yes ibuprofen Allergy Intermediate 10/16/16 Yes Vital Signs Vital Signs Date Time Temp Pulse Resp B/P (MAP) Pulse Ox O2 Delivery O2 Flow Rate FiO2 10/07/18 15:00 100.8 80 16 144/82 (102) 97 Room Air 100.8 Lab Results Laboratory Tests Test 10/06/18 17:48 10/06/18 18:00 10/06/18 18:21 10/06/18 18:57 Glucose (Fingerstick) 86 mg/dL (70-99) White Blood Count 5.4 x10^3/uL (4.0-11.0) Red Blood Count 3.90 x10^6/uL (4.30-5.70) Hemoglobin 12.8 g/dL (13.0-17.5) Hematocrit 36.8 % (39.0-53.0) Mean Corpuscular Volume 94 fL (79-100) Mean Corpuscular Hemoglobin 33 pg (25-35) Mean Corpuscular Hemoglobin Concent 35 g/dL (31-37) Red Cell Distribution Width 17.0 % (11.5-14.5) Platelet Count 278 x10^3/uL (140-400) Neutrophils (%) (Auto) 40 % (31-73) Lymphocytes (%) (Auto) 50 % (24-48) Monocytes (%) (Auto) 6 % (0-9) Eosinophils (%) (Auto) 3 % (0-3) Basophils (%) (Auto) 1 % (0-3) Neutrophils # (Auto) 2.2 x10^3uL (1.8-7.7) Lymphocytes # (Auto) 2.7 x10^3/uL (1.0-4.8) Monocytes # (Auto) 0.3 x10^3/uL (0.0-1.1) Eosinophils # (Auto) 0.2 x10^3/uL (0.0-0.7) Basophils # (Auto) 0.0 x10^3/uL (0.0-0.2) Prothrombin Time 12.4 SEC (11.7-14.0) Prothromb Time International Ratio 1.0 (0.8-1.1) Activated Partial Thromboplast Time 30 SEC (24-38) Sodium Level 142 mmol/L (136-145) Potassium Level 3.9 mmol/L (3.5-5.1) Chloride Level 100 mmol/L (98-107) Carbon Dioxide Level 22 mmol/L (21-32) Anion Gap 20 (6-14) Blood Urea Nitrogen 9 mg/dL (8-26) Creatinine 0.9 mg/dL (0.7-1.3) Estimated GFR (Cockcroft-Gault) 105.2 BUN/Creatinine Ratio 10 (6-20) Glucose Level 76 mg/dL (70-99) Calcium Level 8.9 mg/dL (8.5-10.1) Magnesium Level 2.0 mg/dL (1.8-2.4) Total Bilirubin 0.3 mg/dL (0.2-1.0) Aspartate Amino Transf (AST/SGOT) 39 U/L (15-37) Alanine Aminotransferase (ALT/SGPT) 32 U/L (16-63) Alkaline Phosphatase 129 U/L (46-116) Creatine Kinase 72 U/L (39-308) Creatine Kinase MB (Mass) < 0.5 ng/mL (0.0-3.6) Creatine Kinase MB Relative Index % (0-4) Troponin I Quantitative < 0.017 ng/mL (0.000-0.055) PK-Cqh-E-Type Natriuretic Peptide 15 pg/mL (0-124) Total Protein 7.8 g/dL (6.4-8.2) Albumin 4.3 g/dL (3.4-5.0) Albumin/Globulin Ratio 1.2 (1.0-1.7) Thyroid Stimulating Hormone (TSH) 0.229 uIU/mL (0.358-3.74) Ethyl Alcohol Level 427 mg/dL (0-10) Lactic Acid Level 2.9 mmol/L (0.4-2.0) Ammonia 19 mcmol/L (11-34) Urine Opiates Screen Neg (NEG) Urine Methadone Screen Neg (NEG) Urine Barbiturates Neg (NEG) Urine Phencyclidine Screen Neg (NEG) Urine Amphetamine/Methamphetamine Neg (NEG) Urine Benzodiazepines Screen Neg (NEG) Urine Cocaine Screen Neg (NEG) Urine Cannabinoids Screen Neg (NEG) Urine Ethyl Alcohol Pos (NEG) Test 10/07/18 04:20 10/07/18 04:22 White Blood Count 4.4 x10^3/uL (4.0-11.0) Red Blood Count 3.69 x10^6/uL (4.30-5.70) Hemoglobin 11.9 g/dL (13.0-17.5) Hematocrit 35.0 % (39.0-53.0) Mean Corpuscular Volume 95 fL (79-100) Mean Corpuscular Hemoglobin 32 pg (25-35) Mean Corpuscular Hemoglobin Concent 34 g/dL (31-37) Red Cell Distribution Width 17.4 % (11.5-14.5) Platelet Count 242 x10^3/uL (140-400) Neutrophils (%) (Auto) 30 % (31-73) Lymphocytes (%) (Auto) 54 % (24-48) Monocytes (%) (Auto) 8 % (0-9) Eosinophils (%) (Auto) 5 % (0-3) Basophils (%) (Auto) 3 % (0-3) Neutrophils # (Auto) 1.3 x10^3uL (1.8-7.7) Lymphocytes # (Auto) 2.3 x10^3/uL (1.0-4.8) Monocytes # (Auto) 0.3 x10^3/uL (0.0-1.1) Eosinophils # (Auto) 0.2 x10^3/uL (0.0-0.7) Basophils # (Auto) 0.1 x10^3/uL (0.0-0.2) Sodium Level 143 mmol/L (136-145) Potassium Level 3.7 mmol/L (3.5-5.1) Chloride Level 105 mmol/L (98-107) Carbon Dioxide Level 21 mmol/L (21-32) Anion Gap 17 (6-14) Blood Urea Nitrogen 7 mg/dL (8-26) Creatinine 0.8 mg/dL (0.7-1.3) Estimated GFR (Cockcroft-Gault) 120.6 BUN/Creatinine Ratio 9 (6-20) Glucose Level 61 mg/dL (70-99) Lactic Acid Level 1.9 mmol/L (0.4-2.0) Calcium Level 7.9 mg/dL (8.5-10.1) Total Bilirubin 0.5 mg/dL (0.2-1.0) Aspartate Amino Transf (AST/SGOT) 33 U/L (15-37) Alanine Aminotransferase (ALT/SGPT) 25 U/L (16-63) Alkaline Phosphatase 105 U/L (46-116) Total Protein 6.8 g/dL (6.4-8.2) Albumin 3.4 g/dL (3.4-5.0) Albumin/Globulin Ratio 1.0 (1.0-1.7) Ethyl Alcohol Level 188 mg/dL (0-10) Laboratory Tests Test 10/06/18 17:48 10/06/18 18:00 10/06/18 18:21 10/06/18 18:57 Glucose (Fingerstick) 86 mg/dL (70-99) White Blood Count 5.4 x10^3/uL (4.0-11.0) Red Blood Count 3.90 x10^6/uL (4.30-5.70) Hemoglobin 12.8 g/dL (13.0-17.5) Hematocrit 36.8 % (39.0-53.0) Mean Corpuscular Volume 94 fL (79-100) Mean Corpuscular Hemoglobin 33 pg (25-35) Mean Corpuscular Hemoglobin Concent 35 g/dL (31-37) Red Cell Distribution Width 17.0 % (11.5-14.5) Platelet Count 278 x10^3/uL (140-400) Neutrophils (%) (Auto) 40 % (31-73) Lymphocytes (%) (Auto) 50 % (24-48) Monocytes (%) (Auto) 6 % (0-9) Eosinophils (%) (Auto) 3 % (0-3) Basophils (%) (Auto) 1 % (0-3) Neutrophils # (Auto) 2.2 x10^3uL (1.8-7.7) Lymphocytes # (Auto) 2.7 x10^3/uL (1.0-4.8) Monocytes # (Auto) 0.3 x10^3/uL (0.0-1.1) Eosinophils # (Auto) 0.2 x10^3/uL (0.0-0.7) Basophils # (Auto) 0.0 x10^3/uL (0.0-0.2) Prothrombin Time 12.4 SEC (11.7-14.0) Prothromb Time International Ratio 1.0 (0.8-1.1) Activated Partial Thromboplast Time 30 SEC (24-38) Sodium Level 142 mmol/L (136-145) Potassium Level 3.9 mmol/L (3.5-5.1) Chloride Level 100 mmol/L (98-107) Carbon Dioxide Level 22 mmol/L (21-32) Anion Gap 20 (6-14) Blood Urea Nitrogen 9 mg/dL (8-26) Creatinine 0.9 mg/dL (0.7-1.3) Estimated GFR (Cockcroft-Gault) 105.2 BUN/Creatinine Ratio 10 (6-20) Glucose Level 76 mg/dL (70-99) Calcium Level 8.9 mg/dL (8.5-10.1) Magnesium Level 2.0 mg/dL (1.8-2.4) Total Bilirubin 0.3 mg/dL (0.2-1.0) Aspartate Amino Transf (AST/SGOT) 39 U/L (15-37) Alanine Aminotransferase (ALT/SGPT) 32 U/L (16-63) Alkaline Phosphatase 129 U/L (46-116) Creatine Kinase 72 U/L (39-308) Creatine Kinase MB (Mass) < 0.5 ng/mL (0.0-3.6) Creatine Kinase MB Relative Index % (0-4) Troponin I Quantitative < 0.017 ng/mL (0.000-0.055) GS-Gky-D-Type Natriuretic Peptide 15 pg/mL (0-124) Total Protein 7.8 g/dL (6.4-8.2) Albumin 4.3 g/dL (3.4-5.0) Albumin/Globulin Ratio 1.2 (1.0-1.7) Thyroid Stimulating Hormone (TSH) 0.229 uIU/mL (0.358-3.74) Ethyl Alcohol Level 427 mg/dL (0-10) Lactic Acid Level 2.9 mmol/L (0.4-2.0) Ammonia 19 mcmol/L (11-34) Urine Opiates Screen Neg (NEG) Urine Methadone Screen Neg (NEG) Urine Barbiturates Neg (NEG) Urine Phencyclidine Screen Neg (NEG) Urine Amphetamine/Methamphetamine Neg (NEG) Urine Benzodiazepines Screen Neg (NEG) Urine Cocaine Screen Neg (NEG) Urine Cannabinoids Screen Neg (NEG) Urine Ethyl Alcohol Pos (NEG) Test 10/07/18 04:20 10/07/18 04:22 White Blood Count 4.4 x10^3/uL (4.0-11.0) Red Blood Count 3.69 x10^6/uL (4.30-5.70) Hemoglobin 11.9 g/dL (13.0-17.5) Hematocrit 35.0 % (39.0-53.0) Mean Corpuscular Volume 95 fL (79-100) Mean Corpuscular Hemoglobin 32 pg (25-35) Mean Corpuscular Hemoglobin Concent 34 g/dL (31-37) Red Cell Distribution Width 17.4 % (11.5-14.5) Platelet Count 242 x10^3/uL (140-400) Neutrophils (%) (Auto) 30 % (31-73) Lymphocytes (%) (Auto) 54 % (24-48) Monocytes (%) (Auto) 8 % (0-9) Eosinophils (%) (Auto) 5 % (0-3) Basophils (%) (Auto) 3 % (0-3) Neutrophils # (Auto) 1.3 x10^3uL (1.8-7.7) Lymphocytes # (Auto) 2.3 x10^3/uL (1.0-4.8) Monocytes # (Auto) 0.3 x10^3/uL (0.0-1.1) Eosinophils # (Auto) 0.2 x10^3/uL (0.0-0.7) Basophils # (Auto) 0.1 x10^3/uL (0.0-0.2) Sodium Level 143 mmol/L (136-145) Potassium Level 3.7 mmol/L (3.5-5.1) Chloride Level 105 mmol/L (98-107) Carbon Dioxide Level 21 mmol/L (21-32) Anion Gap 17 (6-14) Blood Urea Nitrogen 7 mg/dL (8-26) Creatinine 0.8 mg/dL (0.7-1.3) Estimated GFR (Cockcroft-Gault) 120.6 BUN/Creatinine Ratio 9 (6-20) Glucose Level 61 mg/dL (70-99) Lactic Acid Level 1.9 mmol/L (0.4-2.0) Calcium Level 7.9 mg/dL (8.5-10.1) Total Bilirubin 0.5 mg/dL (0.2-1.0) Aspartate Amino Transf (AST/SGOT) 33 U/L (15-37) Alanine Aminotransferase (ALT/SGPT) 25 U/L (16-63) Alkaline Phosphatase 105 U/L (46-116) Total Protein 6.8 g/dL (6.4-8.2) Albumin 3.4 g/dL (3.4-5.0) Albumin/Globulin Ratio 1.0 (1.0-1.7) Ethyl Alcohol Level 188 mg/dL (0-10) Brief Hospital Course Mr. Gale is a 57 old [sex] who presented with [ ] 57-year-old -[place] male who almost left AMA in the ER but was too unstable in his gait so he was admitted. He is Alcohol intoxicated with a levels of 457 the rest of the labs show a gap of 17, WBC 4, anemia with hemoglobin 11 but adequate platelets. His MRI of the brain was ordered because of some focal neuro deficits in this alcoholic but that is negative and only showed sinus disease. Neurology was also consulted There are some notes of mention SI, ie, clear plan of shooting himself in the head -which patient adamantly denies - HE wants to leave now. He does not want to see a mental psych counselor His gait is steady Daughter is \TO and she brought her dad in, But in the light of this new information where there was mention of shooting himself in the head-I want him to be seen by PAT team and will not allow AMA. Hopefully will not escalate to a code rosas or that I wont be needing to sedate him to be assessed by [facility] team Discussed with sitter at bedside COURSE: seen by twila OLIVO for OP psych, Librium Rx to be tubed. Etoh cessation counselling done less than 30 mins today Discharge Information Condition at Discharge: Improved, Stable Disposition/Orders: D/C to Home Scheduled Baclofen (Baclofen) 10 Mg Tablet, 5 MG PO TID for MUSCLE RELAXER, #30 Ref 0 (Reported) Entered as Reported by: JUAN C ENRIQUEZ on 05/31/171744 Last Action: Continued on 10/06/182009 by RIANA ANGLIN Famotidine (Pepcid) 20 Mg Tablet, 20 MG PO HS, #10 Prescribed by: JAYLON VAUGHN D.O. on 08/19/16 0305 Last Action: Continued on 10/06/182009 by RIANA ANGLIN Gabapentin (Gabapentin ) 100 Mg Capsule, 100 MG PO QHS, (Reported) Entered as Reported by: JUAN C ENRIQUEZ on 05/31/171744 Last Action: Continued on 10/06/182009 by RIANA ANGLIN Hydrophilic Ointment (Hydrophilic Ointment) 410 Gm Oint...g., 410 GM TP BID, (Reported) Entered as Reported by: JUAN C ENRIQUEZ on 05/31/171744 Last Action: Converted on 10/06/182009 by RIANA ANGLIN Lactose-Reduced Food (Nutritional Shake) 237 Ml Liquid, 237 ML PO DAILY, (Reported) Entered as Reported by: JUAN C ENRIQUEZ on 05/31/171744 Last Action: Converted on 10/06/182009 by RIANA ANGLIN Levetiracetam (Keppra) 500 Mg Tablet, 1,500 MG PO QHS, (Reported) Entered as Reported by: Margaret Carcamo RPH on 01/08/182117 Last Action: Continued on 10/06/182009 by RIANA ANGLIN Mirtazapine (Mirtazapine) 15 Mg Tablet, 0.5 TAB PO QHS, #30 Ref 3 (Reported) Entered as Reported by: JUAN C ENRIQUEZ on 05/31/171744 Last Action: Converted on 10/06/182009 by RIANA ANGLIN Multivitamin (Multivitamins) 1 Each Tablet, 1 TAB PO DAILY, #90 Ref 3 (Reported) Entered as Reported by: JUAN C ENRIQUEZ on 05/31/171744 Last Action: Converted on 10/06/182009 by RIANA ANGLIN [place]-3 Fatty Acids/Fish Oil (Fish Oil 1,000 Mg Capsule) 1 Each Capsule, 1 EACH PO DAILY, (Reported) Entered as Reported by: JUAN C ENRIQUEZ on 05/31/171744 Last Action: Continued on 10/06/182009 by RIANA ANGLIN Thiamine Hcl (Thiamine Hcl) 100 Mg Tablet, 100 MG PO DAILY, (Reported) Entered as Reported by: JUAN C ENRIQUEZ on 05/31/171744 Last Action: Converted on 10/06/182009 by RIANA ANGLIN Trazodone Hcl (Trazodone Hcl) 150 Mg Tablet, 1 TAB PO QHS, #30 Ref 1 (Reported) Entered as Reported by: JUAN C ENRIQUEZ on 05/31/171744 Last Action: Converted on 10/06/182009 by RIANA ANGLIN Triamcinolone Acetonide (Triamcinolone Acetonide 0.025% Cream) 15 Gm Cream..g., 1 IWONA TP DAILY, #30 (Reported) Entered as Reported by: JUAN C ENRIQUEZ on 05/31/171744 Last Action: Converted on 10/06/182009 by RIANA ANGLIN Scheduled PRN Docusate Sodium (Colace) 100 Mg Capsule, 1 CAP PO PRN BID PRN for CONSTIPATION, #30 (Reported) Entered as Reported by: JUAN C ENRIQUEZ on 05/31/171744 Last Action: Continued on 10/06/182009 by RIANA ANGLIN Hydrocodone Bit/Acetaminophen (Hydrocodone-Apap 5-325 ) 1 Each Tablet, 1 TAB PO PRN Q6HRS PRN for PAIN, Ref 0 (Reported) Entered as Reported by: JUAN C ENRIQUEZ on 05/31/171744 Last Action: Continued on 10/06/182009 by RIANA ANGLIN Lidocaine HCl/Menthol (Lidozengel 4%-1%) 120 Ml Gel..ml., 120 ML TP PRN BID PRN for ITCHING, (Reported) Entered as Reported by: JUAN C ENRIQUEZ on 05/31/17 1745 Last Action: Converted on 10/06/182009 by RIANA ANGLIN Ondansetron Hcl (Zofran) 4 Mg Tablet, 4 MG PO BID PRN for NAUSEA/VOMITING, #10 Prescribed by: JAYLON VAUGHN D.O. on 08/19/16 0305 Last Action: Converted on 10/06/182009 by RIANA WIN MD Oct 07, 2018 15:59
--- NOTE | 2018-10-07 17:02 | NUR ---
Discharge Note: IGNACIA GAONA [address] Discharge instructions and discharge home medications reviewed with Patient. A copy was given to patient and family. All questions have been answered and understanding verbalized. Stroke prevention folder went through and given to pt. with primary nurse. This nurse thoroughly went through discharge instructions and education, highlighting important information as she went. Pt. verbalized understanding and repeated education back to this nurse. Pt. S/O came in towards the end of the education and began reaching for information and rushing this nurse to finish. This nurse was unable to aquire pt. signature before DC. While walking to private vehicle pt. S/O repeatedly stated "I don't care about no paperwork. I was coming to get my baby. I was taking my baby out of here." The following instructions and handouts were given: Alcohol problems, Alcohol Withdrawl, Alcohol intoxication, Suicidal Feelings, Suicide: How to help someone who is suicidal, Stroke, Stroke prevention, Chlordiazepoxide Discontinued lines and drains: peripheral IVs removed from left arm. Bleeding at AC. Direct pressure applied, arm elevated, dressing applied and checked prior to DC. Patient discharged to home with self-care via WC to private vehicle.
--- NOTE | 2018-10-08 06:38 | EKG ---
[facility] [address] [place] [address] Test Date: 2018-10-06 Test Time: 17:56:49 Pat Name: IGNACIA GAONA Department: Room: Gender: M [employer] Analysis Technician: : 1960 Requested By: JASMINE WHITMAN Order Number: [id number] Reading MD: Measurements Intervals [place] Rate: 95 P: -23 DE: 156 QRS: 8 QRSD: 100 T: 46 QT: 336 QTc: 425 Interpretive Statements SINUS RHYTHM QRS(T) CONTOUR ABNORMALITY CONSISTENT WITH ANTEROSEPTAL INFARCT PROBABLY OLD ABNORMAL ECG No previous ECG available for comparison
[2018-10-10] MEDS ORDERED: THIAMINE 100 MG TABLET. PO SCH (09:00)
[2018-10-11] MEDS ORDERED: MULTIVITAMIN with MINERAL TABLET. PO SCH (09:00)
== END 2018-10-07 16:55 | disposition home or self-care (01) | DRG 896 ==
LOC: ER 17:38 → 6 SOUTH 19:28
PROVIDERS: ADMIT Internal Medicine; ATTEND Internal Medicine
DX: F10.221 Alcohol dependence with intoxication delirium (principal); G92 Toxic encephalopathy; R45.851 Suicidal ideations; D64.9 Anemia, unspecified; F17.200 Nicotine dependence, unspecified, uncomplicated; F31.9 Bipolar disorder, unspecified; F14.10 Cocaine abuse, uncomplicated; F43.10 Post-traumatic stress disorder, unspecified; I10 Essential (primary) hypertension; Y90.0 Blood alcohol level of less than 20 mg/100 ml; Z79.899 Other long term (current) drug therapy; Z82.49 Family history of ischemic heart disease and other diseases of the circulatory system; Z88.8 Allergy status to other drugs, medicaments and biological substances
CPT/HCPCS: 36415; 70450; 70553; 71045; 80053; 80307; 82140; 82553; 82962; 83605; 83735; 83880; 84443; 84484; 85025; 85610; 85730; 93005; 96365; 96375; 96376; A9575; G0480; J2060; J7030; 99285-25

== ENCOUNTER 2020-07-21 17:56 | Emergency (ER) | payer OTHER ==
[~2020-07-21] VITALS: Ht 177.8 cm; Wt 77.2 kg
[~2020-07-21 17:56] MED LIST changes: +MULT-445 PO; -MULT1TAB52 PO
[2020-07-21 18:58] VITALS: BP 129/80
--- NOTE | 2020-07-21 19:30 | ED.ADGEN ---
Past Medical History Past Medical History: Alcoholism, Bipolar, Depression, Hypertension, Other Additional Past Medical Histor: PTSD Past Surgical History: No Surgical History, Other Additional Past Surgical Histo: LT ARM, RIGHT EAR HEARING? Smoking Status: Current Every Day Smoker Alcohol Use: Heavy Drug Use: Benzodiazepine, Cocaine General Adult EDM: Chief Complaint: ANKLE PROBLEM HPI: HPI: Patient is a 59 year old AA male who presents to the emergency department via EMS with complaints of right ankle and foot pain. Patient states he was working yesterday when a large rock hit the medial aspect of his right lower extremity. Patient denies any numbness, or tingling. He complains of swelling and increased pain with weightbearing. Patient admits to drinking half a pint of david today. He denies any nausea, vomiting, diarrhea, back pain, body aches, or fatigue. Patient currently rates his pain a 10 out of 10 on the pain scale, he reports only thing he is try to help pain is drinking alcohol today. Review of Systems: Review of Systems: Complete ROS is negative unless otherwise noted in HPI. Current Medications: Current Medications Medications (Trade) Dose Ordered Sig/Alberto Start Time Stop Time Status Last Admin Dose Admin Acetaminophen (Tylenol) 650 mg 1X ONCE 07/21/20 20:15 07/21/20 20:16 DC 07/21/20 20:14 650 MG Allergies: Allergies: Allergies Coded Allergies Type Severity Reaction Last Updated Verified Antihistamines - Alkylamine Allergy Intermediate 10/16/16 Yes Antihistamines - Ethanolamine Allergy Intermediate 10/16/16 Yes Antihistamines - Ethylenediamine Allergy Intermediate 10/16/16 Yes Antihistamines - Piperazine Allergy Intermediate 10/16/16 Yes Antihistamines - Piperidine Allergy Intermediate 10/16/16 Yes ibuprofen Allergy Intermediate 10/16/16 Yes Physical Exam: PE: See Above Constitutional: Well developed, well nourished, no acute distress, non-toxic appearance. [] HENT: Normocephalic, atraumatic, bilateral external ears normal, nose normal. [] Eyes: PERRLA, EOMI, conjunctiva normal, no discharge. [] Neck: Normal range of motion, no stridor. [] Cardiovascular:Heart rate regular rhythm Lungs & Thorax: Respirations even and unlabored, no retractions, no respiratory distress Skin: Warm, dry, no erythema, no rash; dark purple bruising and abrasion to medial right lower extremity, no active bleeding, appears to be resolving and healing. [] Extremities: Right lower extremity: Medial tenderness to palpation without o bvious deformity or crepitus, no cyanosis, ROM intact, 1+ edema Neurologic: Alert and oriented X 3, no focal deficits noted. [] Psychologic: Affect normal, judgement normal, mood normal. [] EKG: EKG: [] Heart Score: C/O Chest Pain: No Risk Factors: Risk Factors: DM, Current or recent (<one month) smoker, HTN, HLP, family history of CAD, obesity. Risk Scores: Score 0 - 3: 2.5% MACE over next 6 weeks - Discharge Home Score 4 - 6: 20.3% MACE over next 6 weeks - Admit for Clinical Observation Score 7 - 10: 72.7% MACE over next 6 weeks - Early Invasive Strategies Radiology/Procedures: Radiology/Procedures: PROCEDURE: FOOT RIGHT 3V Exam: Right ankle 3 views. Right foot 3 views INDICATION: Right lower extremity pain and swelling TECHNIQUE: Frontal, lateral and oblique views of the right ankle and right foot Comparisons: None FINDINGS: Ankle: Bone mineralization is normal. No acute or healed fractures. Soft tissue swelling overlying the medial malleolus. Joint spaces are well-maintained. Foot: Bone mineralization is normal. No acute or healed fractures. Soft tissues are unremarkable. Joint spaces are well-maintained. IMPRESSION: 1. Mild soft tissue swelling overlying the medial malleolus without underlying osseous abnormality. 2. No acute osseous abnormality identified at the right foot Electronically signed by: Charles Perez MD (07/21/2020 8:00 PM) [facility] [] Course & Med Decision Making: Course & Med Decision Making Pertinent Labs and Imaging studies reviewed. (See chart for details) Patient presents emergency department with complaints of medial right ankle and right foot pain after a large rock rolled into his leg yesterday. X-rays were negative for any acute fractures or findings. Patient was placed in a ankle air splint and Charbel wrap. Patient admitted to drinking half a pint of david today, he is clinically sober upon discharge alert and oriented x3 throughout his visit. [] Dragon Disclaimer: Dragyessenia Disclaimer: This electronic medical record was generated, in whole or in part, using a voice recognition dictation system. Departure Departure Impression: Primary Impression: Acute right ankle pain Additional Impression: Alcohol intoxication Disposition: 01 DC HOME SELF CARE/HOMELESS Condition: STABLE Referrals: UNKNOWN PCP NAME (PCP) ABUNDIO ARIZMENDI MD Patient Instructions: Ankle Pain Additional Instructions: You can take Tylenol or ibuprofen as needed for pain recommend application of ice, elevation, and rest of affected extremity. Wear the splint that was placed until follow up appointment. Follow-up with Dr. Arizmendi in 1-2 days. Return to the ER if your symptoms worsen. Splinting Splinting : Location: RLE Pre-Made Type: velcro (Ankle air splint) Pre-Proc Neuro Vasc Exam: normal Post-Proc Neuro Vasc Exam: normal, unchanged from pre-exam Problem Qualifiers Additional Impression: Alcohol intoxication Complication of substance-induced condition: uncomplicated Qualified Codes: F10.920 - Alcohol use, unspecified with intoxication, uncomplicated HALIMA BABIN APRN Jul 21, 2020 19:30
--- NOTE | 2020-07-21 20:02 | RAD ---
Exam: Right ankle 3 views. Right foot 3 views INDICATION: Right lower extremity pain and swelling TECHNIQUE: Frontal, lateral and oblique views of the right ankle and right foot Comparisons: None FINDINGS: Ankle: Bone mineralization is normal. No acute or healed fractures. Soft tissue swelling overlying the media l malleolus. Joint spaces are well-maintained. Foot: Bone mineralization is normal. No acute or healed fractures. Soft tissues are unremarkable. Joint spa mary are well-maintained. IMPRESSION: 1. Mild soft tissue swelling overlying the medial malleolus without underlying osseous abnormality. 2. No acute osseous abnormality identified at the right foot Electronically signed by: Charles Perez MD (07/21/2020 8:00 PM) MARY
[2020-07-21] MEDS ORDERED: ACETAMINOPHEN 325 MG TABLET. PO ONE (20:15)
== END 2020-07-21 20:32 | disposition home or self-care (01) ==
LOC: ER 17:56
DX: M25.571 Pain in right ankle and joints of right foot (principal); F10.229 Alcohol dependence with intoxication, unspecified; M79.671 Pain in right foot; R60.0 Localized edema; F32.9 Major depressive disorder, single episode, unspecified; I10 Essential (primary) hypertension; F17.200 Nicotine dependence, unspecified, uncomplicated; F14.90 Cocaine use, unspecified, uncomplicated; F19.90 Other psychoactive substance use, unspecified, uncomplicated; Z98.890 Other specified postprocedural states; Z88.2 Allergy status to sulfonamides; Z88.8 Allergy status to other drugs, medicaments and biological substances
CPT/HCPCS: 73610; 73630; 99284; L4350